=== PATIENT | male | born 1960 | race Caucasian/White ===

== ENCOUNTER 2016-05-22 23:18 | Inpatient (IN) | payer MEDICARE, MEDICAID ==
--- NOTE | 2016-05-23 00:51 | ED Physician Chart ---
Chief Complaint/HPI - Patient Information Date Seen:: 05/23/16 Time Seen:: 00:46 Chief Complaint:: sob History of Present Illness:: pt has been on dialysis x yrs. feels worse sob since 8pm today. no cp. thinks he needs dialysis tx...last was yesterday. no leg edema. no fever. no chills. no cough/no uri sx. Allergies:: Allergies Allergy/AdvReac Type Severity Reaction Status Date / Time tessie Allergy Verified 05/13/16 23:49 Historian:: Patient Review of Systems - Review of Systems General/Constitutional: No fever, No chills, No weight loss, No weakness, No diaphoresis, No edema, No loss of appetite Skin: No skin lesions, No rash, No bruising Head: No headache, No light-headedness Eyes: No loss of vision, No pain, No diplopia ENT: No earache, No nasal drainage, No sore throat, No tinnitus Neck: No neck pain, No swelling, No thyromegaly, No stiffness, No mass noted Cardio Vascular: No chest pain, No palpitations, No PND, No orthopnea, No edema Pulmonary: SOB, No cough, No sputum, No wheezing GI: No nausea, No vomiting, No diarrhea, No pain, No melena, No hematochezia, No constipation, No hematemesis G/U: No dysuria, No frequency, No hematuria, Other (pt does make some urine) Musculoskeletal: No bone or joint pain, No back pain, No muscle pain Endocrine: No polyuria, No polydipsia Psychiatric: No prior psych history, No depression, No anxiety, No suicidal ideation Hematopoietic: No bruising, No lymphadenopathy Allergic/Immuno: No urticaria, No angioedema Neurological: No syncope, No focal symptoms, No weakness, No paresthesia, No headache, No seizure, No dizziness, No confusion, No vertigo Past Medical History - Past Medical History Past Medical History: HTN, CHF, CVA/TIA, Dyslipidemia, ESRD (dialysis pt) Social History: No Alcohol Surgical History: other (dialysis shunt in left forearm) Medication: Reviewed Family Medical History - Family Member Mother History Unknown: Yes Ethnicity: Unknown Living Status: Unknown Hx Family Cancer: No (unknown) Hx Family Coronary Artery Disease: No (unkown) Hx Family Congestive Heart Failure: No (unkown) Hx Family Hypertension: Yes Hx Family Stroke: No Hx Family Diabetes: No Hx Family Seizures: No Hx Family Dementia: No Hx Family AIDS: No Hx Family HIV: No Hx Family COPD: No Hx Family Hepatitis: No Hx Family Psychiatric Problems: No Hx Family Tuberculosis: No Brother History Unknown: Yes Ethnicity: Living Status: Hx Family Cancer: No Hx Family Coronary Artery Disease: No Hx Family Congestive Heart Failure: No Hx Family Hypertension: No Hx Family Stroke: No Hx Family Diabetes: No Hx Family Seizures: No Hx Family Dementia: No Hx Family AIDS: No Hx Family HIV: No Hx Family COPD: No Hx Family Hepatitis: No Hx Family Psychiatric Problems: No Hx Family Tuberculosis: No Physical Exam - Physical Examination General/Constitutional: Awake, Well-developed, well-nourished, Alert, No distress, GCS 15, Non-toxic appearing, Ambulatory Other Gen/Cons comments:: seems slt anxious. no sev sob. no sig edema of legs. abd nontndr. Head: Atraumatic Eyes: Lids, conjuctiva normal, PERRL, EOMI Skin: Nl inspection, No rash, No skin lesions, No ecchymosis, Well hydrated, No lymphadenopathy ENMT: External ears, nose nl, Nasal exam nl, Lips, teeth, gums nl Neck: Nontender, Full ROM w/o pain, No JVD, No nuchal rigidity, No bruit, No mass, No stridor Respiratory: Nl effort/Exclusion, Clear to Auscultation, No Wheeze/Rhonchi/Rales Cardio Vascular: RRR, No murmur, gallop, rubs, NL S1 S2 GI: No tenderness/rebounding/guarding, No organomegaly, No hernia, Normal BS's, Nondistended, No mass/bruits, No McBurney tenderness : No CVA tenderness Extremities: No tenderness or effusion, Full ROM, normal strength in all extremities, No edema, Normal digits & nails Other Extremities comments:: dialysis shunt in left forearm...good thrill. no infection Neuro/Psych: Alert/oriented, DTR's symmetric, Normal sensory exam, Normal motor strength, Judgement/insight normal, Mood normal, Normal gait, No focal deficits Misc: normal gait, Normal back, No paraspinal tenderness Labs/Radiology/EKG Results - Lab Results Results: Laboratory Tests 05/23/16 05/23/16 05/23/16 00:55 00:55 00:55 WBC 5.9 D RBC 2.98 L Hgb 9.4 L Hct 27.5 L MCV 92.4 MCH 31.5 H MCHC Differential 34.1 RDW 14.1 Plt Count 126 L MPV 9.2 Neutrophils % 68.2 Lymphocytes % 16.7 L Monocytes % 10.1 H Eosinophils % 3.8 Basophils % 1.2 Sodium 134 L Potassium 5.5 H Chloride 96 L Carbon Dioxide 25.8 Anion Gap 17.7 H BUN 61 H Creatinine 8.0 H* Est GFR ( Amer) 9.1 Est GFR (Non-Af Amer) 7.5 BUN/Creatinine Ratio 7.6 Glucose 341 H Calcium 9.2 Total Bilirubin 0.6 AST 20 ALT 18 Alkaline Phosphatase 95 Troponin I 0.06 H D B-Natriuretic Peptide 4190.0 H Total Protein 7.6 Albumin 4.4 Globulin 3.2 Albumin/Globulin Ratio 1.4 - Radiology Results Results: cxr pos mod difuse pulmonary edema all over - EKG Interpretations EKG Time:: 01:00 Rhythm: nsr 70 Keller: -5 Rate: 70 Comments:: mild st elev v2-v4 ....records show no sig change from 05/13/16 ecg ED Septic Shock - . Is Septic Shock (SBP<90, OR Lactate>4 mmol\L) present?: No Reassessment (Disposition) - Reassessment Reassessment:: pt had 150 cc urine output per nurses. he had refused to allow the reilly cath for urine outpt monitoring Reassessment Condition:: Improved - Diagnosis Diagnosis:: 1 pulmonary edema 2ndary to chronic renal failure [address] elevation on ecg (appears old) - Patient Disposition Admitted to:: Telemetry Condition at Disposition:: Improved ED Discharge Plan - Patient Disposition Admit/Discharge/Transfer: Acute Care w/in this hosp Condition at Disposition: Stable
[2016-05-23 01:07] LABS: % BASOPHILS 1.2 % (0.0-2.0); % EOSINOPHILS 3.8 % (0.0-5.0); % LYMPHOCYTES 16.7 % (20.0-50.0); % MONOCYTES 10.1 % (2.0-10.0); % NEUTROPHILS 68.2 % (40.0-80.0); HEMATOCRIT 27.5 % (39.0-49.0); HEMOGLOBIN 9.4 gm/dL (13.2-17.3); MEAN CELL VOLUME 92.4 fl (80-99); MEAN CORPUSCULAR HEMOGLOBIN 31.5 pg (26.0-30.0); MEAN CORPUSCULAR HGB CONC 34.1 pg (28.0-36.0); MEAN PLATELET VOLUME 9.2 fl; PLATELET COUNT 126 Th/cmm (150-400); RED BLOOD COUNT 2.98 Mil/cmm (4.30-5.70); RED CELL DISTRIBUTION WIDTH 14.1 % (11.5-20.0)
[2016-05-23 01:11] LABS: WHITE BLOOD COUNT 5.9 Th/cmm (4.8-10.8)
[2016-05-23 01:23] LABS: ALB/GLOB RATIO 1.4 (1.0-1.8); ANION GAP 17.7 (7.0-16.0); BILIRUBIN,TOTAL 0.6 mg/dL (0.3-1.0); BUN/CREATININE RATIO 7.6; CALCIUM SERUM 9.2 mg/dL (8.6-10.3); CARBON DIOXIDE 25.8 mEq/L (21.0-31.0); POTASSIUM SERUM 5.5 mEq/L (3.5-5.1)
[2016-05-23] MEDS ORDERED: Morphine Sulfate 2 mg/mL 1mL Syr IVP PRN (03:53)
--- NOTE | 2016-05-23 09:44 | Diagnostic Imaging Report ---
CHEST X-RAY: AP view INDICATION: Shortness of breath COMPARISON: 05/13/2016 FINDINGS: Findings of CHF are noted. No effusions. Mild cardiomegaly is noted. Postsurgical changes of the lower neck are noted. Osseous structures are intact. IMPRESSION: CHF. Developing pneumonia of the right lower lung zones cannot be excluded.
[2016-05-23] MEDS ORDERED: Hydrocodone/APAP 10 mg/325 mg Tab PO PRN (11:30)
[2016-05-23] MEDS: Albuterol/Ipratropium Neb 3 ML AERS HHN PRN ×2 (13:43→19:25)
--- NOTE | 2016-05-23 14:34 | Internal Medicine Prog Note ---
Internal Medicine Subjective - Subjective Service Date: 05/23/16 ([facility] [id number]) Internal Medicine Objective - Results Result Diagrams: 05/23/16 00:55 05/23/16 00:55 Recent Labs: Laboratory Last Values WBC 5.9 Th/cmm (4.8-10.8) D 05/23/16 00:55 RBC 2.98 Mil/cmm (4.30-5.70) L 05/23/16 00:55 Hgb 9.4 gm/dL (13.2-17.3) L 05/23/16 00:55 Hct 27.5 % (39.0-49.0) L 05/23/16 00:55 MCV 92.4 fl (80-99) 05/23/16 00:55 MCH 31.5 pg (26.0-30.0) H 05/23/16 00:55 MCHC Differential 34.1 pg (28.0-36.0) 05/23/16 00:55 RDW 14.1 % (11.5-20.0) 05/23/16 00:55 Plt Count 126 Th/cmm (150-400) L 05/23/16 00:55 MPV 9.2 fl 05/23/16 00:55 Neutrophils % 68.2 % (40.0-80.0) 05/23/16 00:55 Lymphocytes % 16.7 % (20.0-50.0) L 05/23/16 00:55 Monocytes % 10.1 % (2.0-10.0) H 05/23/16 00:55 Eosinophils % 3.8 % (0.0-5.0) 05/23/16 00:55 Basophils % 1.2 % (0.0-2.0) 05/23/16 00:55 Sodium 134 mEq/L (136-145) L 05/23/16 00:55 Potassium 5.5 mEq/L (3.5-5.1) H 05/23/16 00:55 Chloride 96 mEq/L (98-107) L 05/23/16 00:55 Carbon Dioxide 25.8 mEq/L (21.0-31.0) 05/23/16 00:55 Anion Gap 17.7 (7.0-16.0) H 05/23/16 00:55 BUN 61 mg/dL (7-25) H 05/23/16 00:55 Creatinine 8.0 mg/dL (0.7-1.3) H* 05/23/16 00:55 Est GFR ( Amer) 9.1 ml/min 05/23/16 00:55 Est GFR (Non-Af Amer) 7.5 ml/min 05/23/16 00:55 BUN/Creatinine Ratio 7.6 05/23/16 00:55 Glucose 341 mg/dL (70-105) H 05/23/16 00:55 Calcium 9.2 mg/dL (8.6-10.3) 05/23/16 00:55 Total Bilirubin 0.6 mg/dL (0.3-1.0) 05/23/16 00:55 AST 20 U/L (13-39) 05/23/16 00:55 ALT 18 U/L (7-52) 05/23/16 00:55 Alkaline Phosphatase 95 U/L (34-104) 05/23/16 00:55 Troponin I 0.06 ng/mL (0.01-0.05) H 05/23/16 08:00 B-Natriuretic Peptide 4190.0 pg/mL (5.0-100.0) H 05/23/16 00:55 Total Protein 7.6 gm/dL (6.0-8.3) 05/23/16 00:55 Albumin 4.4 gm/dL (4.2-5.5) 05/23/16 00:55 Globulin 3.2 gm/dL 05/23/16 00:55 Albumin/Globulin Ratio 1.4 (1.0-1.8) 05/23/16 00:55 - Physical Exam Vitals and I&O: Vital Signs Temp 97.1 F 05/23/16 09:00 Pulse 83 05/23/16 13:43 Resp 20 05/23/16 13:43 BP 181/89 05/23/16 09:00 Pulse Ox 94 05/23/16 13:43 Intake & Output 05/22/16 05/23/16 05/23/16 18:59 06:59 18:59 Intake Total 0 Balance 0 Weight (lbs) 155 lb Intake: Oral 0 Active Medications: Current Medications Acetaminophen (Tylenol) 650 mg PO Q4HR PRN PRN Reason: Pain Stop: 07/22/16 09:53 Acetaminophen/Hydrocodone Bitart ([place] 10 Mg/325 Mg) 1 tab PO Q6HR PRN PRN Reason: Pain (Severe) Stop: 07/22/16 11:29 Albuterol/Ipratropium (Duoneb Neb) 3 ml HHN Q6HR PRN PRN Reason: Shortness of Breath Stop: 07/22/16 09:53 Last Admin: 05/23/16 13:43 Dose: 3 ml Aspirin (Aspirin Chewable) 81 mg PO DAILY [facility] Stop: 07/23/16 08:59 Atorvastatin Calcium (Lipitor) 20 mg PO HS CECE PRN Reason: Protocol Stop: 07/22/16 20:59 Calcium Acetate (Phoslo) 667 mg PO TID [facility] Stop: 07/22/16 13:59 Last Admin: 05/23/16 13:39 Dose: 667 mg Carvedilol (Coreg) 6.25 mg PO BID [facility] Stop: 07/22/16 16:59 Cholecalciferol (Vitamin D3) 5,000 iu PO DAILY [facility] Stop: 07/23/16 08:59 Clonidine HCl (Catapres) 0.1 mg PO Q6HR PRN PRN Reason: SBP >160 Stop: 07/22/16 12:29 Last Admin: 05/23/16 13:39 Dose: 0.1 mg Docusate Sodium (Colace) 100 mg PO BID [facility] Stop: 07/22/16 16:59 Epoetin Nate (Epogen) 5,000 units SUBQ MoWeFr CECE Stop: 07/22/16 14:59 Fenofibrate (Tricor) 134 mg PO HS [facility] Stop: 07/22/16 20:59 Ferrous Sulfate (Iron) 325 mg PO QPM 1700 CECE Stop: 07/22/16 16:59 Folic Acid (Folate) 1 mg PO DAILY [facility] Stop: 07/23/16 08:59 Gabapentin (Neurontin) 300 mg PO HS [facility] Stop: 07/22/16 20:59 Miscellaneous (Clinical Monitoring) 1 ea MC PRN PRN PRN Reason: RENAL DOSING Stop: 07/22/16 07:54 Morphine Sulfate (Morphine) 2 mg IVP Q4H PRN PRN Reason: Pain (Moderate) Stop: 07/22/16 03:59 Sennosides (Senna Plus 50 Mg-8.6 Mg) 8.6 tab PO HS [facility] Stop: 07/22/16 20:59 - Procedures Procedures: Procedures Procedure Code Date BLOOD TRANSFUSION SERVICE 44882 03/25/15 ESRD HOME PT SERV P DAY + 95382 07/19/15 HEMODIALYSIS 39.95 12/07/14 HEMODIALYSIS REPEATED EVAL 21294 03/25/15 INJECT/INFUSE NEC 99.29 10/13/14 PERFORMANCE OF URINARY FILTRATION, MULTIPLE [id number] 05/13/16 PERFORMANCE OF URINARY FILTRATION, SINGLE [id number] 07/19/15 TRANSFUSE NONAUT RED BLOOD CELLS IN PERIPH VEIN, PERC 50077T9 03/25/15 Internal Medicine Assmt/Plan - Assessment Assessment: shortness of breath elevated troponin r/o ACS chf exacerbation esrd on hd dm-2
[2016-05-23] MEDS ORDERED: Epoetin Alfa 20000 Units/mL Vial SUBQ SCH (15:00)
[2016-05-23] MEDS ORDERED: Promethazine DM 6.25/15mg-5mL 5 ML SYR PO PRN (15:12)
--- NOTE | 2016-05-23 15:57 | History & Physical ---
CHIEF COMPLAINT: Shortness of breath. HISTORY OF PRESENT ILLNESS: This is a 56-year-old male who is admitted to the telemetry unit. I am well known to this patient from previous admission on 05/13/2016 for the same reason. According to the patient, he has been having increase of shortness of breath since last night. The patient denied any chest pain, but he states that after he drinks his fluids, he starts getting shortness of breath and he started to develop wheezing. The patient states that he probably needs dialysis to get all the fluid out. For this reason, the patient is now admitted to the telemetry unit. PAST MEDICAL HISTORY: ESRD on dialysis, diabetes, noncompliant, CHF, hypertension. PAST SURGICAL HISTORY: AV shunt, cholecystectomy. MEDICATIONS: Hydralazine, Blum, Lipitor, insulin, melatonin, Colace, losartan, Epogen, iron, minoxidil, calcium and vitamin D3. ALLERGIES: No drug allergies. SOCIAL HISTORY: The patient has a history of smoking and drinking in the past. Denies any illicit drug usage. The patient states that he is with 4 kids. FAMILY HISTORY: Noncontributory. REVIEW OF SYSTEMS: GENERAL: Denies any fevers, any chills. HEENT: No blurred vision. LUNGS: The patient has shortness of breath associated with wheezing. CARDIOVASCULAR: Denies any chest pain. GASTROINTESTINAL: Denies any nausea, vomiting. GENITOURINARY: Denies any dysuria. All other systems are reviewed by me and are negative. PHYSICAL EXAMINATION: EXTREMITIES: The patient is a well-developed, well nourished, no acute distress. VITAL SIGNS: Temperature 97.1, heart rate 68, blood pressure ____, respirations 18, O2 99%. HEENT: Head; normocephalic, atraumatic. NECK: Supple. No mass. LUNGS: Wheezing bilaterally upon auscultation. HEART: Regular rate and rhythm. No murmurs or gallops. ABDOMEN: Soft, nontender, nondistended. Positive bowel sounds in all 4 quadrants. LABORATORY DATA: WBC 5.9, H and H 9.4 and 27.5, platelet 126. Sodium 134, potassium 5.5, chloride 96, BUN 61, creatinine 8.0. Troponin of 0.06. BNP 4190. ASSESSMENT: Shortness of breath, elevated troponin, rule out acute coronary syndrome, congestive heart failure exacerbation, end-stage renal disease, on dialysis, diabetes, noncompliant and hypertension. PLAN: The patient will be admitted to the telemetry unit. The patient will have a consultation with Dr. Haas and Dr. Mian Yarbrough. The patient to receive dialysis during the hospital stay. We will monitor patient's intake and output. The patient was given Lasix x 1 in the ER. We will continue to monitor the patient. JOB# [id number]
[2016-05-23] MEDS: NIFEdipine 30 mg ER Tab PO SCH (17:50)
[2016-05-23] MEDS: Ferrous Sulfate 325 MG TAB PO SCH (17:51)
[2016-05-23] MEDS: INSULIN ASPART SLIDING SCALE 100 UNITS/ML UNIT SUBQ SCH ×2 (18:02→22:02)
[2016-05-23] MEDS ORDERED: Fenofibrate, Micronized 134 mg Cap PO SCH (21:00)
[2016-05-23] MEDS ORDERED: Non-Formulary Item 1 EA (Atorvastatin Calcium [Lipitor] 20 MG) PO SCH (21:00)
[2016-05-23] MEDS ORDERED: Atorvastatin Calcium 10 MG TAB PO SCH (21:00)
[2016-05-23] MEDS ORDERED: Docusate Sodium/Senna Tab PO SCH ×2 (21:00→21:20)
--- NOTE | 2016-05-24 00:15 | Admit Criteria Form ---
Admit Criteria Forms - Admit Criteria Diagnosis: HEART FAILURE: COMMON COMPLICATIONS Clinical Indications for Inpatient Care (Place 'X' for any and all applicable criteria): Ongoing inpatient care may be indicated for heart failure with ANY ONE of the following (1)(2)(3)(4)(5): [ ]I. Ongoing need for care for primary condition requiring frequent therapy adjustments because of changes in cardiac function (eg, drug dosage changes for drugs that are renally metabolized) [ ]II. New-onset heart failure [ ]III. Heart failure with decreased urine output not responsive to attempts to optimize volume status [ ]IV. Acute cardiac ischemia causing or associated with failure [ X]V. Complications of heart failure, including ANY ONE of the following: [ ]a) Pericardial effusion [ ]b) Symptomatic pleural effusion [ ]c) O2 saturation <90% or PO2 < 60 mm Hg (8.0 kPa) on room air or require baseline supplemental O2 [ ]d) Tachypnea [X ]e) Dyspnea [ ]f) Syncope [ ]g) Change in mental status [ ]h) Acute renal insufficiency that is severe (reduction of more than 50% in estimated glomerular filtration rate from baseline) or progressive reduction of more than 25% in estimated glomerular filtration rate from baseline, with creatinine continuing to rise) [ ]i) Hemodynamic instability [ ]j) Anasarca [ ]k) Clinically significant metabolic abnormalities due to heart failure (eg, new-onset metabolic acidosis) Extended stay beyond goal length of stay for primary condition may be needed until ALL of the following are present(1)(3): [ ]a) Stable and effective diuretic regimen established (or patient on stable dialysis regimen if in chronic renal failure) [ ]b) Breathing comfortably at rest [ ]c) Saturation of arterial oxygen greater than 90% or at acceptable baseline [ ]d) Pulmonary edema absent or improved [ ]e) Hemodynamic stability [ ]f) Volume status acceptable on oral medication [ ]g) Peripheral or sacral edema absent or improved [ ]h) Renal function stable and manageable at a lower level of care [ ]i) Complications (eg, pleural effusion) resolved or manageable at a lower level of care [ ]j) Patient or caregiver has received written discharge instructions or educational material addressing activity level, diet, discharge medications, follow-up appointment, weight monitoring, and what to do if symptoms worsen The original [employer] content created by [employer] has been revised. The portions of the content which have been revised are identified through the use of italic text or in bold, and [employer] has neither reviewed nor approved the modified material.All other unmodified content is copyright [employer]. Please see references footnoted in the original [employer] edition 2016 Admit Criteria Met?: Yes
--- NOTE | 2016-05-24 03:38 | Consultation ---
The patient of Dr. Gregory. HISTORY AND PHYSICAL: This is a 56-year-old male patient with dialysis, recently discharged. The patient is a poor compliant. The patient came in with shortness of breath. The patient was found to have elevated BNP level , and Cardiology consult was requested. PAST MEDICAL HISTORY: Diabetes mellitus type 2, diabetic CKD stage V, end-stage renal disease on dialysis, hypertension, anemia, appendectomy, left upper extremity AV fistula, cholecystitis, congestive heart failure, and iron deficiency anemia. FAMILY HISTORY: Unremarkable. SOCIAL HISTORY: No history of smoking or alcohol abuse. ALLERGIES: No known allergies. PHYSICAL EXAMINATION: VITAL SIGNS: Blood pressure 156/90, pulse 88, and respirations 28. HEAD: Normocephalic. No lumps or bumps. EYES: Pupils are equal and reactive to light. Fundi show AV nicking, sclerae white, and conjunctivae pink. NECK: Carotid 2+. Normal upstroke. JVD 10 cm above the sternal angle. Thyroid not palpable. Lymph nodes not palpable. CHEST: Shows increased AP diameter. No kyphosis or scoliosis. LUNGS: Bilateral rales. Decreased breath sounds at both the bases. HEART: PMI in sixth intercostal space with lateral to midclavicular line. S1, S2, S3, S4, systolic murmur, grade 2/6, lower left sternal border without radiation. ABDOMEN: Soft. Liver and spleen not palpable. No organomegaly. Bowel sounds active. NEUROLOGIC: Unremarkable. EXTREMITIES: Peripheral pulses 2+. No pedal edema. The patient has AV fistula in the left upper extremity. CLINICAL IMPRESSION: Congestive heart failure; diastolic dysfunction, acute on chronic; diabetes mellitus type 2; diabetic chronic kidney disease stage V; end-stage renal disease, on dialysis; hyperkalemia; hypertension; iron deficiency anemia; fistula in left upper extremity. The patient is a noncompliant. The patient to have dialysis with ultrafiltration and monitor the patient on telemetry bed. JOB# [id number]
--- NOTE | 2016-05-24 04:53 | Consultation ---
INPATIENT NEPHROLOGY CONSULTATION REASON FOR CONSULTATION: End-stage renal disease, on hemodialysis. HISTORY OF PRESENT ILLNESS: The patient is a pleasant 56-year-old gentleman with end-stage renal disease secondary to diabetic nephropathy and hypertensive nephrosclerosis, on hemodialysis on Saturday, Saturday, and Saturday schedule via left upper extremity AV fistula at [facility]. The patient is well known to me from previous admission as well as Dialysis Unit. The patient states that he felt short of breath. Of note, he has approximately 6 kg over his estimated dry weight. Otherwise, denies complaints, mildly elevated troponin was also noted. REVIEW OF SYSTEMS: Denies fevers, chills, nausea, or vomiting. Does endorse shortness of breath. Denies chest pain. Otherwise, 14-point review of systems as noted above. PAST MEDICAL HISTORY: As per above. PAST SURGICAL HISTORY: Left arm AV fistula creation. SOCIAL HISTORY: No smoking, alcohol or drinking at this time. FAMILY HISTORY: Noncontributory. PHYSICAL EXAMINATION: VITAL SIGNS: Temperature 36, blood pressure 177/60, pulse 80, respirations 18. GENERAL APPEARANCE: Well-developed, well-nourished man in no apparent distress, alert and oriented x3. LUNGS: Clear to auscultation bilaterally; however, scattered crackles and rales in the bases bilaterally. CARDIOVASCULAR: Regular rate, normal rhythm. No murmurs, rubs or gallops. EXTREMITIES: Trace edema, 1+ pulses distally. LABORATORY DATA: As of 05/23/2016, white count 5.9, hemoglobin 9.4, platelets 126. Chemistry, sodium 134, K 5.5, chloride 96, CO2 25, BUN 61, creatinine 8.0 and glucose 341. Troponin 0.06, slightly elevated, albumin 4.4, calcium 9.2. ASSESSMENT AND RECOMMENDATIONS: 1. End-stage renal disease, on hemodialysis via left upper extremity arteriovenous fistula. We will perform dialysis today for ultrafiltration as well as clearance. Continue on Saturday, Saturday, Saturday schedule at this time. 2. Shortness of breath, dyspnea likely due to fluid overload as per number 1. We do suspect a component of congestive heart failure, the patient is being evaluated by Cardiology, Dr. Yarbrough, who believes that this is likely noncompliance with dialysis and had a negative cardiac workup on recent admission, please see Cardiology evaluation. 3. Anemia secondary to end-stage renal disease. Hemoglobin remains below goal at this time. We will hold off on giving MARTA. The patient is only going to be staying in hospital for the next couple of days, as the patient received his weekly dose of Aranesp at the Dialysis Unit on 05/21/2016. 4. Renal osteodystrophy. Calcium appears to be within goal. We will check phosphorus with a.m. labs. Thank you, Dr Gregory for allowing us to participate in the care of this end-stage renal disease patient. We will continue to follow along with you. JOB# [id number] KENTRELL
[2016-05-24 06:30] LABS: HEMATOCRIT 28.2 % (39.0-49.0); HEMOGLOBIN 9.7 gm/dL (13.2-17.3); MEAN CELL VOLUME 92.6 fl (80-99); MEAN CORPUSCULAR HEMOGLOBIN 31.9 pg (26.0-30.0); MEAN CORPUSCULAR HGB CONC 34.5 pg (28.0-36.0); MEAN PLATELET VOLUME 8.9 fl; PLATELET COUNT 137 Th/cmm (150-400); RED BLOOD COUNT 3.04 Mil/cmm (4.30-5.70); RED CELL DISTRIBUTION WIDTH 13.6 % (11.5-20.0)
[2016-05-24] MEDS ORDERED: Levothyroxine 0.1 Mg Tab PO SCH (06:30)
[2016-05-24] MEDS: INSULIN ASPART SLIDING SCALE 100 UNITS/ML UNIT SUBQ SCH ×3 (06:30→16:57)
[2016-05-24 06:31] LABS: WHITE BLOOD COUNT 3.9 Th/cmm (4.8-10.8)
[2016-05-24 06:58] LABS: BUN/CREATININE RATIO 6.7; CALCIUM SERUM 9.4 mg/dL (8.6-10.3); CARBON DIOXIDE 33.1 mEq/L (21.0-31.0); POTASSIUM SERUM 4.1 mEq/L (3.5-5.1)
[2016-05-24 07:13] LABS: BASOPHIL 3 % (0-3); EOSINOPHIL 3 % (0-5); NEUTROPHILS 61 % (40-80); PLATELET ESTIMATE DECREASED PLATELETS (NORMAL); PLATELET MORPHOLOGY NORMAL (NORMAL); TOTAL CELLS COUNTED 100
[2016-05-24 07:24] LABS: CREATININE - SERUM 6.4 mg/dL (0.7-1.3)
[2016-05-24] MEDS ORDERED: Aspirin 81mg Chewable Tab PO SCH (09:00)
[2016-05-24] MEDS ORDERED: PROTEIN HYDROLYS PO SCH (09:00)
[2016-05-24] MEDS ORDERED: AMINO ACIDS PO SCH (09:00)
[2016-05-24] MEDS ORDERED: INSULIN HUMAN ISOPHANE (NPH) 100 UNITS/ML SUBQ SCH (09:00)
[2016-05-24] MEDS ORDERED: Vitamin B Complex w/Vitamin C Tab PO SCH (09:00)
--- NOTE | 2016-05-24 09:02 | General Progress Note ---
Subjective - Review of Systems Service Date: 05/24/16 Subjective: Denies c/o, wants to go home today. 4L removed w/ HD on 05/23. Objective - Results Result Diagrams: 05/24/16 05:55 05/24/16 05:55 Recent Labs: Laboratory Last Values WBC 3.9 Th/cmm (4.8-10.8) L D 05/24/16 05:55 RBC 3.04 Mil/cmm (4.30-5.70) L 05/24/16 05:55 Hgb 9.7 gm/dL (13.2-17.3) L 05/24/16 05:55 Hct 28.2 % (39.0-49.0) L 05/24/16 05:55 MCV 92.6 fl (80-99) 05/24/16 05:55 MCH 31.9 pg (26.0-30.0) H 05/24/16 05:55 MCHC Differential 34.5 pg (28.0-36.0) 05/24/16 05:55 RDW 13.6 % (11.5-20.0) 05/24/16 05:55 Plt Count 137 Th/cmm (150-400) L 05/24/16 05:55 MPV 8.9 fl 05/24/16 05:55 Neutrophils % 68.2 % (40.0-80.0) 05/23/16 00:55 Lymphocytes % 16.7 % (20.0-50.0) L 05/23/16 00:55 Monocytes % 10.1 % (2.0-10.0) H 05/23/16 00:55 Eosinophils % 3.8 % (0.0-5.0) 05/23/16 00:55 Basophils % 1.2 % (0.0-2.0) 05/23/16 00:55 Neutrophils (Manual) 61 % (40-80) 05/24/16 05:55 Lymphocytes 25 % (20-50) 05/24/16 05:55 Monocytes 8 % (2-10) 05/24/16 05:55 Eosinophils 3 % (0-5) 05/24/16 05:55 Basophils 3 % (0-3) 05/24/16 05:55 Platelet Estimate DECREASED PLATELETS (NORMAL) 05/24/16 05:55 Platelet Morphology NORMAL (NORMAL) 05/24/16 05:55 RBC Morph Micro Appear NORMAL (NORMAL) 05/24/16 05:55 Sodium 136 mEq/L (136-145) 05/24/16 05:55 Potassium 4.1 mEq/L (3.5-5.1) 05/24/16 05:55 Chloride 96 mEq/L (98-107) L 05/24/16 05:55 Carbon Dioxide 33.1 mEq/L (21.0-31.0) H 05/24/16 05:55 Anion Gap 11.0 (7.0-16.0) 05/24/16 05:55 BUN 43 mg/dL (7-25) H 05/24/16 05:55 Creatinine 6.4 mg/dL (0.7-1.3) H* 05/24/16 05:55 Est GFR ( Amer) 11.8 ml/min 05/24/16 05:55 Est GFR (Non-Af Amer) 9.7 ml/min 05/24/16 05:55 BUN/Creatinine Ratio 6.7 05/24/16 05:55 Glucose 211 mg/dL (70-105) H 05/24/16 05:55 POC Glucose 193 MG/DL (70 - 105) H 05/24/16 06:09 Calcium 9.4 mg/dL (8.6-10.3) 05/24/16 05:55 Phosphorus 4.3 mg/dL (2.5-5.0) 05/24/16 05:55 Total Bilirubin 0.6 mg/dL (0.3-1.0) 05/23/16 00:55 AST 20 U/L (13-39) 05/23/16 00:55 ALT 18 U/L (7-52) 05/23/16 00:55 Alkaline Phosphatase 95 U/L (34-104) 05/23/16 00:55 Troponin I 0.05 ng/mL (0.01-0.05) 05/23/16 16:00 B-Natriuretic Peptide 4190.0 pg/mL (5.0-100.0) H 05/23/16 00:55 Total Protein 7.6 gm/dL (6.0-8.3) 05/23/16 00:55 Albumin 4.4 gm/dL (4.2-5.5) 05/23/16 00:55 Globulin 3.2 gm/dL 05/23/16 00:55 Albumin/Globulin Ratio 1.4 (1.0-1.8) 05/23/16 00:55 - Physical Exam Vitals and I&O: Vital Signs Temp 98.3 F 05/24/16 08:29 Pulse 57 05/24/16 08:29 Resp 17 05/24/16 08:29 BP 143/72 05/24/16 08:29 Pulse Ox 96 05/24/16 08:29 Intake & Output 05/23/16 05/24/16 05/24/16 18:59 06:59 18:59 Intake Total 300 Output Total 4000 Balance -4000 300 Intake: Oral 300 Output: Hemodialysis 4000 Other: Stool Characteristics Soft Active Medications: Current Medications Acetaminophen (Tylenol) 650 mg PO Q4HR PRN PRN Reason: Pain Stop: 07/22/16 09:53 Acetaminophen/Hydrocodone Bitart ([place] 10 Mg/325 Mg) 1 tab PO Q6HR PRN PRN Reason: Pain (Severe) Stop: 07/22/16 11:29 Albuterol/Ipratropium (Duoneb Neb) 3 ml HHN Q6HR PRN PRN Reason: Shortness of Breath Stop: 07/22/16 09:53 Last Admin: 05/23/16 19:25 Dose: 3 ml Aspirin (Aspirin Chewable) 81 mg PO DAILY [facility] Stop: 07/23/16 08:59 Atorvastatin Calcium (Lipitor) 20 mg PO HS [facility] PRN Reason: Protocol Stop: 07/22/16 20:59 Last Admin: 05/23/16 21:36 Dose: 20 mg Calcium Acetate (Phoslo) 667 mg PO TID [facility] Stop: 07/22/16 13:59 Last Admin: 05/23/16 21:36 Dose: 667 mg Carvedilol (Coreg) 6.25 mg PO BID [facility] Stop: 07/22/16 16:59 Last Admin: 05/23/16 17:49 Dose: 6.25 mg Cholecalciferol (Vitamin D3) 5,000 iu PO DAILY [facility] Stop: 07/23/16 08:59 Clonidine HCl (Catapres) 0.1 mg PO Q6HR PRN PRN Reason: SBP >160 Stop: 07/22/16 12:29 Last Admin: 05/24/16 00:39 Dose: 0.1 mg Docusate Sodium (Colace) 100 mg PO BID [facility] Stop: 07/22/16 16:59 Last Admin: 05/23/16 17:50 Dose: Not Given Epoetin Nate (Epogen) 5,000 units SUBQ MoWeFr [facility] Stop: 07/22/16 14:59 Last Admin: 05/23/16 21:39 Dose: 5,000 units Fenofibrate (Tricor) 134 mg PO HS [facility] Stop: 07/22/16 20:59 Last Admin: 05/23/16 21:37 Dose: 134 mg Ferrous Sulfate (Iron) 325 mg PO QPM 1700 [facility] Stop: 07/22/16 16:59 Last Admin: 05/23/16 17:51 Dose: 325 mg Folic Acid (Folate) 1 mg PO DAILY [facility] Stop: 07/23/16 08:59 Gabapentin (Neurontin) 300 mg PO HS [facility] Stop: 07/22/16 20:59 Last Admin: 05/23/16 21:37 Dose: 300 mg Hydralazine HCl (Apresoline) 100 mg PO Q8HR [facility] Stop: 07/22/16 20:59 Last Admin: 05/24/16 05:05 Dose: 100 mg Insulin Aspart (Novolog Insulin Sliding Scale) 0 units SUBQ ACHS [facility] PRN Reason: Protocol Stop: 07/22/16 16:29 Last Admin: 05/24/16 06:30 Dose: 2 units Insulin Human NPH (Novolin N) 8 units SUBQ QAM [facility] PRN Reason: Protocol Stop: 07/23/16 08:59 Levothyroxine Sodium (Synthroid) 0.1 mg PO QDAC [facility] Stop: 07/23/16 06:29 Last Admin: 05/24/16 06:06 Dose: 0.1 mg Minoxidil (Loniten) 2.5 mg PO BID [facility] Stop: 07/22/16 16:59 Last Admin: 05/23/16 17:50 Dose: 2.5 mg Miscellaneous (Clinical Monitoring) 1 ea MC PRN PRN PRN Reason: RENAL DOSING Stop: 07/22/16 07:54 Morphine Sulfate (Morphine) 2 mg IVP Q4H PRN PRN Reason: Pain (Moderate) Stop: 07/22/16 03:59 Nifedipine (Procardia Xl) 30 mg PO BID [facility] Stop: 07/22/16 16:59 Last Admin: 05/23/16 17:50 Dose: 30 mg Promethazine HCl/Dextromethorphan (Phenergan Dm 6.25/15mg-5 Ml) 5 ml PO Q6HR PRN PRN Reason: Cough Stop: 07/22/16 15:11 Sennosides (Senna Plus 50 Mg-8.6 Mg) 1 tab PO HS [facility] Stop: 07/22/16 20:59 Valsartan (Diovan) 160 mg PO BID [facility] Stop: 07/22/16 16:59 Last Admin: 05/23/16 17:51 Dose: 160 mg Vitamin B Complex/Vit C/Folic Acid (Vitamin B Complex W/Vitamin C) 1 tab PO DAILY [facility] Stop: 07/23/16 08:59 General: Alert, Oriented x3 HEENT: Atraumatic Neck: Supple Cardiovascular: Regular rate Lungs: Clear to auscultation Extremities: Edema (trace) - Procedures Procedures: Procedures Procedure Code Date BLOOD TRANSFUSION SERVICE 92454 03/25/15 ESRD HOME PT SERV P DAY + 12230 07/19/15 HEMODIALYSIS 39.95 12/07/14 HEMODIALYSIS REPEATED EVAL 97131 03/25/15 INJECT/INFUSE NEC 99.29 10/13/14 PERFORMANCE OF URINARY FILTRATION, MULTIPLE [id number] 05/13/16 PERFORMANCE OF URINARY FILTRATION, SINGLE [id number] 07/19/15 TRANSFUSE NONAUT RED BLOOD CELLS IN PERIPH VEIN, [facility] [id number] 03/25/15 Assessment/Plan - Problem List Patient Problems: All Active Problems Acute renal failure (Acute) Body fluid retention (Acute) E87.70 Congestive heart failure (Acute) I50.9 End-stage renal disease (Acute) Hypertensive renal disease, malignant, with renal failure (Acute) I12.9 - Assessment Assessment: ESRD on HD, on MWF schedule Anemia Renal osteodystrophy Fluid overload - Plan Plan: Appears euvolemic today Can be d/c from renal perspective to follow at [place] HD on MWF schedule BP controlled D/c night-time 8 units insulin due to early AM hypoglycemia
[2016-05-24] MEDS: NIFEdipine 30 mg ER Tab PO SCH ×2 (09:05→17:24)
--- NOTE | 2016-05-24 13:02 | Internal Medicine Prog Note ---
Internal Medicine Subjective - Subjective Service Date: 05/24/16 (dc summary [id number]) Internal Medicine Objective - Results Result Diagrams: 05/24/16 05:55 05/24/16 05:55 Recent Labs: Laboratory Last Values WBC 3.9 Th/cmm (4.8-10.8) L D 05/24/16 05:55 RBC 3.04 Mil/cmm (4.30-5.70) L 05/24/16 05:55 Hgb 9.7 gm/dL (13.2-17.3) L 05/24/16 05:55 Hct 28.2 % (39.0-49.0) L 05/24/16 05:55 MCV 92.6 fl (80-99) 05/24/16 05:55 MCH 31.9 pg (26.0-30.0) H 05/24/16 05:55 MCHC Differential 34.5 pg (28.0-36.0) 05/24/16 05:55 RDW 13.6 % (11.5-20.0) 05/24/16 05:55 Plt Count 137 Th/cmm (150-400) L 05/24/16 05:55 MPV 8.9 fl 05/24/16 05:55 Neutrophils % 68.2 % (40.0-80.0) 05/23/16 00:55 Lymphocytes % 16.7 % (20.0-50.0) L 05/23/16 00:55 Monocytes % 10.1 % (2.0-10.0) H 05/23/16 00:55 Eosinophils % 3.8 % (0.0-5.0) 05/23/16 00:55 Basophils % 1.2 % (0.0-2.0) 05/23/16 00:55 Neutrophils (Manual) 61 % (40-80) 05/24/16 05:55 Lymphocytes 25 % (20-50) 05/24/16 05:55 Monocytes 8 % (2-10) 05/24/16 05:55 Eosinophils 3 % (0-5) 05/24/16 05:55 Basophils 3 % (0-3) 05/24/16 05:55 Platelet Estimate DECREASED PLATELETS (NORMAL) 05/24/16 05:55 Platelet Morphology NORMAL (NORMAL) 05/24/16 05:55 RBC Morph Micro Appear NORMAL (NORMAL) 05/24/16 05:55 Sodium 136 mEq/L (136-145) 05/24/16 05:55 Potassium 4.1 mEq/L (3.5-5.1) 05/24/16 05:55 Chloride 96 mEq/L (98-107) L 05/24/16 05:55 Carbon Dioxide 33.1 mEq/L (21.0-31.0) H 05/24/16 05:55 Anion Gap 11.0 (7.0-16.0) 05/24/16 05:55 BUN 43 mg/dL (7-25) H 05/24/16 05:55 Creatinine 6.4 mg/dL (0.7-1.3) H* 05/24/16 05:55 Est GFR ( Amer) 11.8 ml/min 05/24/16 05:55 Est GFR (Non-Af Amer) 9.7 ml/min 05/24/16 05:55 BUN/Creatinine Ratio 6.7 05/24/16 05:55 Glucose 211 mg/dL (70-105) H 05/24/16 05:55 POC Glucose 193 MG/DL (70 - 105) H 05/24/16 06:09 Hemoglobin A1c % 9.2 % (4.0-6.0) H 05/24/16 05:55 Calcium 9.4 mg/dL (8.6-10.3) 05/24/16 05:55 Phosphorus 4.3 mg/dL (2.5-5.0) 05/24/16 05:55 Total Bilirubin 0.6 mg/dL (0.3-1.0) 05/23/16 00:55 AST 20 U/L (13-39) 05/23/16 00:55 ALT 18 U/L (7-52) 05/23/16 00:55 Alkaline Phosphatase 95 U/L (34-104) 05/23/16 00:55 Troponin I 0.05 ng/mL (0.01-0.05) 05/23/16 16:00 B-Natriuretic Peptide 4190.0 pg/mL (5.0-100.0) H 05/23/16 00:55 Total Protein 7.6 gm/dL (6.0-8.3) 05/23/16 00:55 Albumin 4.4 gm/dL (4.2-5.5) 05/23/16 00:55 Globulin 3.2 gm/dL 05/23/16 00:55 Albumin/Globulin Ratio 1.4 (1.0-1.8) 05/23/16 00:55 Hep Bs Antigen Negative (Negative) 05/23/16 16:35 - Physical Exam Vitals and I&O: Vital Signs Temp 98.4 F 05/24/16 12:16 Pulse 59 05/24/16 12:16 Resp 18 05/24/16 12:16 BP 134/80 05/24/16 12:16 Pulse Ox 97 05/24/16 12:16 Intake & Output 05/23/16 05/24/16 05/24/16 18:59 06:59 18:59 Intake Total 300 Output Total 4000 Balance -4000 300 Intake: Oral 300 Output: Hemodialysis 4000 Other: Stool Characteristics Soft Active Medications: Current Medications Acetaminophen (Tylenol) 650 mg PO Q4HR PRN PRN Reason: Pain Stop: 07/22/16 09:53 Acetaminophen/Hydrocodone Bitart ([place] 10 Mg/325 Mg) 1 tab PO Q6HR PRN PRN Reason: Pain (Severe) Stop: 07/22/16 11:29 Albuterol/Ipratropium (Duoneb Neb) 3 ml HHN Q6HR PRN PRN Reason: Shortness of Breath Stop: 07/22/16 09:53 Last Admin: 05/23/16 19:25 Dose: 3 ml Aspirin (Aspirin Chewable) 81 mg PO DAILY [facility] Stop: 07/23/16 08:59 Last Admin: 05/24/16 09:04 Dose: 81 mg Atorvastatin Calcium (Lipitor) 20 mg PO HS [facility] PRN Reason: Protocol Stop: 07/22/16 20:59 Last Admin: 05/23/16 21:36 Dose: 20 mg Calcium Acetate (Phoslo) 667 mg PO TID [facility] Stop: 07/22/16 13:59 Last Admin: 05/24/16 08:59 Dose: 667 mg Carvedilol (Coreg) 6.25 mg PO BID [facility] Stop: 07/22/16 16:59 Last Admin: 05/24/16 08:58 Dose: Not Given Cholecalciferol (Vitamin D3) 5,000 iu PO DAILY [facility] Stop: 07/23/16 08:59 Last Admin: 05/24/16 09:09 Dose: 5,000 iu Clonidine HCl (Catapres) 0.1 mg PO Q6HR PRN PRN Reason: SBP >160 Stop: 07/22/16 12:29 Last Admin: 05/24/16 00:39 Dose: 0.1 mg Docusate Sodium (Colace) 100 mg PO BID [facility] Stop: 07/22/16 16:59 Last Admin: 05/24/16 09:04 Dose: Not Given Epoetin Nate (Epogen) 5,000 units SUBQ MoWeFr [facility] Stop: 07/22/16 14:59 Last Admin: 05/23/16 21:39 Dose: 5,000 units Fenofibrate (Tricor) 134 mg PO HS [facility] Stop: 07/22/16 20:59 Last Admin: 05/23/16 21:37 Dose: 134 mg Ferrous Sulfate (Iron) 325 mg PO QPM 1700 [facility] Stop: 07/22/16 16:59 Last Admin: 05/23/16 17:51 Dose: 325 mg Folic Acid (Folate) 1 mg PO DAILY [facility] Stop: 07/23/16 08:59 Last Admin: 05/24/16 09:04 Dose: 1 mg Gabapentin (Neurontin) 300 mg PO HS [facility] Stop: 07/22/16 20:59 Last Admin: 05/23/16 21:37 Dose: 300 mg Hydralazine HCl (Apresoline) 100 mg PO Q8HR [facility] Stop: 07/22/16 20:59 Last Admin: 05/24/16 05:05 Dose: 100 mg Insulin Aspart (Novolog Insulin Sliding Scale) 0 units SUBQ ACHS [facility] PRN Reason: Protocol Stop: 07/22/16 16:29 Last Admin: 05/24/16 06:30 Dose: 2 units Insulin Human NPH (Novolin N) 8 units SUBQ QAM [facility] PRN Reason: Protocol Stop: 07/23/16 08:59 Last Admin: 05/24/16 09:10 Dose: 8 units Levothyroxine Sodium (Synthroid) 0.1 mg PO QDAC [facility] Stop: 07/23/16 06:29 Last Admin: 05/24/16 06:06 Dose: 0.1 mg Minoxidil (Loniten) 2.5 mg PO BID [facility] Stop: 07/22/16 16:59 Last Admin: 05/24/16 10:42 Dose: 2.5 mg Miscellaneous (Clinical Monitoring) 1 ea MC PRN PRN PRN Reason: RENAL DOSING Stop: 07/22/16 07:54 Nifedipine (Procardia Xl) 30 mg PO BID [facility] Stop: 07/22/16 16:59 Last Admin: 05/24/16 09:05 Dose: 30 mg Promethazine HCl/Dextromethorphan (Phenergan Dm 6.25/15mg-5 Ml) 5 ml PO Q6HR PRN PRN Reason: Cough Stop: 07/22/16 15:11 Sennosides (Senna Plus 50 Mg-8.6 Mg) 1 tab PO HS [facility] Stop: 07/22/16 20:59 Valsartan (Diovan) 160 mg PO BID [facility] Stop: 07/22/16 16:59 Last Admin: 05/24/16 09:06 Dose: 160 mg Vitamin B Complex/Vit C/Folic Acid (Vitamin B Complex W/Vitamin C) 1 tab PO DAILY [facility] Stop: 07/23/16 08:59 Last Admin: 05/24/16 09:10 Dose: 1 tab - Procedures Procedures: Procedures Procedure Code Date BLOOD TRANSFUSION SERVICE 69643 03/25/15 ESRD HOME PT SERV P DAY + 68971 07/19/15 HEMODIALYSIS 39.95 12/07/14 HEMODIALYSIS REPEATED EVAL 58203 03/25/15 INJECT/INFUSE NEC 99.29 10/13/14 PERFORMANCE OF URINARY FILTRATION, MULTIPLE [id number] 05/13/16 PERFORMANCE OF URINARY FILTRATION, SINGLE [id number] 07/19/15 TRANSFUSE NONAUT RED BLOOD CELLS IN PERIPH VEIN, [facility] [id number] 03/25/15 Internal Medicine Assmt/Plan - Assessment Assessment: shortness of breath elevated troponin r/o ACS chf exacerbation esrd on hd dm-2
[2016-05-24] MEDS: Ferrous Sulfate 325 MG TAB PO SCH (17:24)
--- NOTE | 2016-05-24 18:55 | Discharge Summary ---
FINAL DIAGNOSES: 1.Shortness of breath, resolved. 2.Elevated troponin, rule out acute coronary syndrome, resolved. 3.Congestive heart failure exacerbation. 4.End-stage renal disease, on dialysis. 5.Diabetes, noncompliant. 6.Hypertension. HISTORY OF PRESENT ILLNESS: This is a 56-year-old male who was admitted to the telemetry unit. According to the patient, he has been having increase of shortness of breath as outlined. The patient denied any chest pain. He states that he drinks. After eating ____ he starts getting shortness of breath and start to developed wheezing. For these reason, the patient was admitted to the telemetry unit. PHYSICAL EXAMINATION: GENERAL: The patient is well developed, well nourished, in no acute distress. VITAL SIGNS: Stable. HEENT: Normocephalic, atraumatic. NECK: Supple. No mass. LUNGS: Clear bilaterally upon auscultation. HEART: Regular rate and rhythm. No murmurs or gallops. SKIN: Intact, warm to touch. ABDOMEN: Soft, nontender, nondistended. Positive bowel sounds in all 4 quadrants. HOSPITAL COURSE: During the hospital stay, the patient was admitted to the telemetry unit. The patient had a consultation with Dr. Mian Yarbrough and Dr. Stephan Buckley. Dr. Mian Yarbrough's plan of care for this patient was to continue with dialysis and to monitor the patient on grain elevator agent. The patient was later then stabilized. He did not have any wheezing. The patient felt better after dialysis. The patient was stable for discharge. CONDITION UPON DISCHARGE: Fair. DISPOSITION: The patient is going home. Educated the patient importance of being compliant with his medications and also his diet. The patient understood and verbalized. JOB# [id number]
== END 2016-05-24 18:00 | DRG 291 ==
LOC: ER 23:18 → TELE 05-23 03:50
PROVIDERS: ADMIT Internal Medicine; ATTEND Internal Medicine
PROC: 5A1D00Z (ICD-10-PCS; principal; 2016-05-23)
DX: I13.2 Hypertensive heart and chronic kidney disease with heart failure and with stage 5 chronic kidney disease, or end stage renal disease (principal); I50.33 Acute on chronic diastolic (congestive) heart failure; N17.9 Acute kidney failure, unspecified; E11.22 Type 2 diabetes mellitus with diabetic chronic kidney disease; E11.42 Type 2 diabetes mellitus with diabetic polyneuropathy; N18.6 End stage renal disease; I50.9 Heart failure, unspecified; E78.5 Hyperlipidemia, unspecified; D50.9 Iron deficiency anemia, unspecified; E87.5 Hyperkalemia; D63.1 Anemia in chronic kidney disease; Z99.2 Dependence on renal dialysis; Z91.018 Allergy to other foods; Z86.73 Personal history of transient ischemic attack (TIA), and cerebral infarction without residual deficits; Z82.49 Family history of ischemic heart disease and other diseases of the circulatory system; Z90.49 Acquired absence of other specified parts of digestive tract; Z91.14 Patient's other noncompliance with medication regimen; Z79.4 Long term (current) use of insulin; Z87.891 Personal history of nicotine dependence
CPT/HCPCS: 36415-UA; 71010-TC; 80048-TC; 80053-TC; 82948-90; 83036-90; 83880-TC; 84100-TC; 84484-TC; 85007-TC; 85025-TC; 85027-TC; 87340-90; 87341-90; 90937; 93005; 94760; 96374; J0885; J1815; J1940; J2270; Z7610

== ENCOUNTER 2016-07-01 02:00 | Inpatient (IN) | payer MEDICARE, MEDICAID ==
[2016-07-01] MEDS ORDERED: Albuterol/Ipratropium Neb 3 ML AERS HHN ONE ×2 (02:35→02:48)
--- NOTE | 2016-07-01 02:43 | ED Physician Chart ---
Chief Complaint/HPI - Patient Information Date Seen:: 07/01/16 Time Seen:: 02:05 Chief Complaint:: shortness of breath History of Present Illness:: 56-year-old male, end-stage renal disease on dialysis, brought in caregiver from home with increasing, constant, moderate to severe, shortness of breath 2 hours. Has associated increased tachypnea and slight anxiety. Allergies:: Allergies Allergy/AdvReac Type Severity Reaction Status Date / Time joewi Allergy Verified 05/13/16 23:49 Vitals:: Vital Signs - 8 hr 07/01/16 02:05 Temp 98.6 F HR 94 RR 22 BP 235/117 O2 Sat % 91 Historian:: Patient Review:: Nurse's Note Reviewed Review of Systems - Review of Systems Other: Complete system review otherwise unremarkable except as noted in HPI. Past Medical History - Past Medical History Past Medical History: HTN, DM, ESRD Family History: None Social History: Non Smoker, No Alcohol, No Drug Use, Other Surgical History: None Psychiatricy History: None Medication: Reviewed Family Medical History - Family Member Mother History Unknown: Yes Ethnicity: Unknown Living Status: Unknown Hx Family Cancer: No (unknown) Hx Family Coronary Artery Disease: No (unkown) Hx Family Congestive Heart Failure: No (unkown) Hx Family Hypertension: Yes Hx Family Stroke: No Hx Family Diabetes: No Hx Family Seizures: No Hx Family Dementia: No Hx Family AIDS: No Hx Family HIV: No Hx Family COPD: No Hx Family Hepatitis: No Hx Family Psychiatric Problems: No Hx Family Tuberculosis: No Brother History Unknown: Yes Ethnicity: Living Status: Hx Family Cancer: No Hx Family Coronary Artery Disease: No Hx Family Congestive Heart Failure: No Hx Family Hypertension: No Hx Family Stroke: No Hx Family Diabetes: No Hx Family Seizures: No Hx Family Dementia: No Hx Family AIDS: No Hx Family HIV: No Hx Family COPD: No Hx Family Hepatitis: No Hx Family Psychiatric Problems: No Hx Family Tuberculosis: No Physical Exam - Physical Examination Other:: INITIAL VITAL SIGNS: Reviewed by me GENERAL: Alert and interactive. In moderate respiratory distress. HEAD: Head is normocephalic and atraumatic EYES: EOMI. . No scleral icterus. No conjunctival injection ENT: Moist mucous membranes. NECK: Supple. No masses. Full range of motion RESPIRATORY: Tachypneic, left-sided crackles throughout the lower lung field. CV: Regular rate and rhythm. No murmurs, rubs, or gallops ABDOMEN: Soft, non-distended, non-tender. No guarding. No rebound. No masses. EXTREMITIES: No deformity. No cyanosis. No edema. SKIN: Warm and dry. No obvious rashes. NEUROLOGIC: Alert and oriented. Face is symmetric. Speech is normal. Moves all extremities equally. Motor and sensory distally intact. Labs/Radiology/EKG Results - Lab Results Results: Lab Results 07/01/16 07/01/16 07/01/16 Range/Units 03:12 03:12 03:12 WBC 5.7 D (4.8-10.8) Th/cmm RBC 3.27 L (4.30-5.70) Mil/cmm Hgb 10.0 L (13.2-17.3) gm/dL Hct 29.5 L (39.0-49.0) % MCV 90.1 (80-99) fl MCH 30.5 H (26.0-30.0) pg MCHC Differential 33.9 (28.0-36.0) pg RDW 12.6 (11.5-20.0) % Plt Count 113 L (150-400) Th/cmm MPV 9.7 fl Neutrophils % 67.8 (40.0-80.0) % Lymphocytes % 18.5 L (20.0-50.0) % Monocytes % 8.7 (2.0-10.0) % Eosinophils % 4.5 (0.0-5.0) % Basophils % 0.5 (0.0-2.0) % PT 10.3 (9.5-11.5) SECONDS INR 1.04 (0.5-1.4) PTT (Actin FS) 28.1 (26.0-38.0) SECONDS Specimen Source Sample Site pH (7.35-7.45) pCO2 (35.0-45.0) mmHg pO2 (80.0-100.0) mmHg HCO3 (20.0-26.0) mmol/L Base Excess (-3.0-3.0) mmol/L O2 Saturation (92.0-100.0) % Gerry Test Vent Rate Inspired O2 Tidal Volume PEEP Pressure (ins/psv/peep) Critical Value Sodium 123 L (136-145) mEq/L Potassium 5.7 H (3.5-5.1) mEq/L Chloride 89 L (98-107) mEq/L Carbon Dioxide 26.0 (21.0-31.0) mEq/L Anion Gap 13.7 (7.0-16.0) BUN 51 H (7-25) mg/dL Creatinine 6.7 H* (0.7-1.3) mg/dL Est GFR ( Amer) 11.2 (>90) ml/min Est GFR (Non-Af Amer) 9.2 ml/min BUN/Creatinine Ratio 7.6 Glucose 879 H* (70-105) mg/dL Whole Bld Lactic Acid (0.60-2.00) mmol/L Calcium 9.2 (8.6-10.3) mg/dL Total Bilirubin 0.5 (0.3-1.0) mg/dL AST 30 (13-39) U/L ALT 36 (7-52) U/L Alkaline Phosphatase 133 H (34-104) U/L Total Protein 7.4 (6.0-8.3) gm/dL Albumin 4.3 (4.2-5.5) gm/dL Globulin 3.1 gm/dL Albumin/Globulin Ratio 1.4 (1.0-1.8) 07/01/16 07/01/16 Range/Units 03:12 04:08 WBC (4.8-10.8) Th/cmm RBC (4.30-5.70) Mil/cmm Hgb (13.2-17.3) gm/dL Hct (39.0-49.0) % MCV (80-99) fl MCH (26.0-30.0) pg MCHC Differential (28.0-36.0) pg RDW (11.5-20.0) % Plt Count (150-400) Th/cmm MPV fl Neutrophils % (40.0-80.0) % Lymphocytes % (20.0-50.0) % Monocytes % (2.0-10.0) % Eosinophils % (0.0-5.0) % Basophils % (0.0-2.0) % PT (9.5-11.5) SECONDS INR (0.5-1.4) PTT (Actin FS) (26.0-38.0) SECONDS Specimen Source Arterial Sample Site RB pH 7.38 (7.35-7.45) pCO2 45.0 (35.0-45.0) mmHg pO2 464.0 H (80.0-100.0) mmHg HCO3 26.6 H (20.0-26.0) mmol/L Base Excess 1.1 (-3.0-3.0) mmol/L O2 Saturation 100.0 (92.0-100.0) % Gerry Test Positive Vent Rate 20 Inspired O2 100 Tidal Volume 550 PEEP 5 Pressure (ins/psv/peep) NA Critical Value SN Sodium (136-145) mEq/L Potassium (3.5-5.1) mEq/L Chloride (98-107) mEq/L Carbon Dioxide (21.0-31.0) mEq/L Anion Gap (7.0-16.0) BUN (7-25) mg/dL Creatinine (0.7-1.3) mg/dL Est GFR ( Amer) (>90) ml/min Est GFR (Non-Af Amer) ml/min BUN/Creatinine Ratio Glucose (70-105) mg/dL Whole Bld Lactic Acid 0.77 (0.60-2.00) mmol/L Calcium (8.6-10.3) mg/dL Total Bilirubin (0.3-1.0) mg/dL AST (13-39) U/L ALT (7-52) U/L Alkaline Phosphatase (34-104) U/L Total Protein (6.0-8.3) gm/dL Albumin (4.2-5.5) gm/dL Globulin gm/dL Albumin/Globulin Ratio (1.0-1.8) - Radiology Results Results: Single AP VIEW Portable Chest X-ray was interpreted independently and contemporaneously by Karlie Miller MD: No cardiomegaly Normal mediastinum Pulmonary congestion but no obvious infiltrates No pneumothorax No soft tissue or bony abnormalities - EKG Interpretations Comments:: 12-lead EKG Interpretation by Karlie Miller MD: Normal Sinus Rhythm with ventricular rate of 79 beats per minute Normal axis Normal intervals No acute ST or T wave changes. No obvious STEMI Assessment - Assessment General Assessment: Critical Care Time: 45 minutes Treatments/Evaluations: Close monitoring and treatment of unstable vital signs, cardiorespiratory, and neurologic status, while maintaining tight balance of fluid, respiratory, and cardiac interventions. This time includes discussing the case with the patient and the patient's family. This time does not include all procedures stated elsewhere in this record. This time also includes reviewing old records, labs and radiological studies. This time includes examining and re-examining the patient. Additionally, this time also includes arranging care with admitting and consulting physicians. Critical Care Time: 45 - Procedures Procedures:: Intubation Endotracheal Intubation by me, Dr. Karlie Miller M.D.: Pre assessment performed. See preceding note for details. Pre-oxygenation performed with 100% oxygen RSI: Performed w/o complication or hypoxic events. Medications as ordered. Blade: MAC 4 ET Tube: 7.5 cm Depth: 23 cm at the lip Compl: No hypoxic events or bradycardia Intubation confirmed by colorimetric CO2, equal breath sounds, quiet over the stomach. Chest X-ray 1V Interpreted by me: 2 cm above the trent ET tube. Normal soft tissue, No pneumothorax. ED Septic Shock - . Is Septic Shock (SBP<90, OR Lactate>4 mmol\L) present?: No - <6hrs of presentation: Vital Signs: Vital Signs - 8 hr 07/01/16 02:05 Temp 98.6 F HR 94 RR 22 BP 235/117 O2 Sat % 91 Reassessment (Disposition) - Reassessment Reassessment:: This patient arrived in respiratory distress and rapidly went into respiratory failure. He was rapidly intubated. He has multiple comorbidities including end -stage renal disease on hemodialysis. While he initially appears to be fluid overloaded with crackles in the lung castellano and jugular venous distention, his blood sugar was 879. Patient has hyperosmolar hyperglycemic state. This is complicated by his renal failure but we will give bolus of IV fluids. Have established Hinojosa catheter. Gave IV insulin. Blood pressure has been problematic. Continues to be severely an elevated. Nitro paste was applied. Propofol drip going. Hydralazine IV administered. Patient was stabilized. Discussed case with the admitting physician Dr. Gregory. Patient transferred to ICU under the care of Dr. Gregory. Reassessment Condition:: Improved - Diagnosis Diagnosis:: Respiratory failure Hyperosmolar hyperglycemic state Hypertensive emergency End-stage renal disease on dialysis Anemia, normocytic, chronic disease Hypertension - Patient Disposition Discharge/Transfer:: Acute Care w/in this hosp Admitted to:: ICU Admitting Medical Physician:: Francisco Gregory Time:: 04:41 Condition at Disposition:: Critical ED Discharge Plan - Patient Disposition Admit/Discharge/Transfer: Acute Care w/in this hosp Condition at Disposition: Critical
[2016-07-01] MEDS ORDERED: NITROGLYCERIN OINT 2% 1 INCH PACKET TP STA (02:46)
[2016-07-01] MEDS ORDERED: cefTRIAXone 1 GM in Sodium Chloride 0.9% 50 ML IV ONE (02:48)
[2016-07-01] MEDS ORDERED: NITROGLYCERIN OINT 2% 1 INCH PACKET TP ONE (02:49)
[2016-07-01] MEDS ORDERED: Morphine Sulfate 4 mg/mL 1mL Syr IVP ONE (03:04)
[2016-07-01 03:23] LABS: % BASOPHILS 0.5 % (0.0-2.0); % EOSINOPHILS 4.5 % (0.0-5.0); % LYMPHOCYTES 18.5 % (20.0-50.0); % MONOCYTES 8.7 % (2.0-10.0); % NEUTROPHILS 67.8 % (40.0-80.0); HEMATOCRIT 29.5 % (39.0-49.0); MEAN CELL VOLUME 90.1 fl (80-99); MEAN CORPUSCULAR HEMOGLOBIN 30.5 pg (26.0-30.0); MEAN CORPUSCULAR HGB CONC 33.9 pg (28.0-36.0); MEAN PLATELET VOLUME 9.7 fl; NEUTROPHILE ABSOLUTE 3.8 Th/cmm (1.8-8.0); PLATELET COUNT 113 Th/cmm (150-400); RED BLOOD COUNT 3.27 Mil/cmm (4.30-5.70); RED CELL DISTRIBUTION WIDTH 12.6 % (11.5-20.0)
[2016-07-01 03:32] LABS: INR 1.04 (0.5-1.4); PROTHROMBIN TIME (TEST) 10.3 SECONDS (9.5-11.5)
[2016-07-01 03:33] LABS: WHITE BLOOD COUNT 5.7 Th/cmm (4.8-10.8)
[2016-07-01 03:45] LABS: ALB/GLOB RATIO 1.4 (1.0-1.8); ANION GAP 13.7 (7.0-16.0); BILIRUBIN,TOTAL 0.5 mg/dL (0.3-1.0); BUN/CREATININE RATIO 7.6; CALCIUM SERUM 9.2 mg/dL (8.6-10.3); POTASSIUM SERUM 5.7 mEq/L (3.5-5.1)
[2016-07-01] MEDS ORDERED: INSULIN HUMAN REGULAR 100 UNITS/ML UNIT SUBQ ONE (04:07)
[2016-07-01 04:08] LABS: CREATININE - SERUM 6.7 mg/dL (0.7-1.3)
[2016-07-01] MEDS ORDERED: Sodium Chloride 0.9% 1,000 ML IV ONE ×2 (04:09→04:13)
[2016-07-01 04:21] LABS: ABG SOURCE Arterial; BE(B) 1.1 mmol/L (-3.0-3.0); HCO3 26.6 mmol/L (20.0-26.0); pH 7.38 (7.35-7.45)
[2016-07-01 04:22] LABS: ALLEN TEST Positive; FIO2 100; MECH RATE 20; MECH VT 550
[2016-07-01 04:23] LABS: CRITICAL VALUES REPORTED BY SN
[2016-07-01] MEDS ORDERED: INSULIN HUMAN REGULAR 100 UNITS/ML UNIT IVP ONE ×2 (04:29→05:27)
[2016-07-01 04:59] LABS: LIPASE 20 U/L (11-82)
[2016-07-01 05:11] LABS: TROP I 0.06 ng/mL (0.01-0.05)
[2016-07-01] MEDS ORDERED: Promethazine DM 6.25/15mg-5mL 5 ML SYR PO PRN (06:03)
[2016-07-01] MEDS ORDERED: Diltiazem 5 mg/mL 5mL Vial IVP PRN (06:07)
[2016-07-01] MEDS ORDERED: Sodium Chloride 0.9% 1,000 ML IV SCH (06:15)
[2016-07-01] MEDS ORDERED: Albuterol Nebulizer 2.5mg/3mL HHN ONE (06:33)
[2016-07-01] MEDS ORDERED: Ipratropium Neb 0.5 mg/2.5 mL UD HHN ONE (06:34)
[2016-07-01 07:59] VITALS: BP 00/00
[2016-07-01] MEDS ORDERED: PROTEIN HYDROLYS PO SCH (09:00)
[2016-07-01] MEDS ORDERED: AMINO ACIDS PO SCH (09:00)
--- NOTE | 2016-07-01 09:17 | Diagnostic Imaging Report ---
Portable chest x-ray HISTORY: Pain The heart is enlarged. Hazy bilateral infiltrates. Findings may be associated pulmonary edema and a degree of congestive heart failure. Clinical correlation is needed. No pleural fluid evident. IMPRESSION: 1. Cardiomegaly with hazy interstitial lung markings. The findings may be associated with edema and congestive heart failure. Clinical correlation is needed.
--- NOTE | 2016-07-01 09:20 | Diagnostic Imaging Report ---
Portable chest x-ray HISTORY: Shortness of breath, status post intubation Compared to prior exam taken earlier today (0303 hours), an endotracheal tube has been inserted. The tip is approximately 0.5 cm above the trent. This should be pulled back approximately 2.0 cm. The heart remains enlarged. There appears to be somewhat more focal infiltrate in the right lower lobe. Pneumonia cannot be excluded. Clinical correlation is needed. IMPRESSION: 1. Endotracheal tube tip approximately 0.5 cm above the trent. This should be pulled back approximately 2.0 cm 2. Infiltrate right lower lobe. Pneumonia cannot be excluded. Clinical correlation is needed 3. Persistent cardiomegaly
[2016-07-01] MEDS ORDERED: Morphine Sulfate 2 mg/mL 1mL Syr ONE (11:27)
[2016-07-01] MEDS: Morphine Sulfate 2 mg/mL 1mL Syr IVP PRN ×2 (11:30→22:42)
[2016-07-01] MEDS: Ipratropium Neb 0.5 mg/2.5 mL UD HHN SCH ×3 (12:07→19:19)
[2016-07-01] MEDS: Albuterol Nebulizer 2.5mg/3mL HHN SCH ×3 (12:07→19:19)
[2016-07-01] MEDS: INSULIN ASPART, RECOMBINANT 100 UNITS/ML SUBQ SCH ×3 (12:30→21:49)
--- NOTE | 2016-07-01 12:40 | Internal Medicine Prog Note ---
Internal Medicine Subjective - Subjective Service Date: 07/01/16 ([id number] hnp dictated ) Internal Medicine Objective - Results Result Diagrams: 07/01/16 03:12 07/01/16 03:12 Recent Labs: Laboratory Last Values WBC 5.7 Th/cmm (4.8-10.8) D 07/01/16 03:12 RBC 3.27 Mil/cmm (4.30-5.70) L 07/01/16 03:12 Hgb 10.0 gm/dL (13.2-17.3) L 07/01/16 03:12 Hct 29.5 % (39.0-49.0) L 07/01/16 03:12 MCV 90.1 fl (80-99) 07/01/16 03:12 MCH 30.5 pg (26.0-30.0) H 07/01/16 03:12 MCHC Differential 33.9 pg (28.0-36.0) 07/01/16 03:12 RDW 12.6 % (11.5-20.0) 07/01/16 03:12 Plt Count 113 Th/cmm (150-400) L 07/01/16 03:12 MPV 9.7 fl 07/01/16 03:12 Neutrophils % 67.8 % (40.0-80.0) 07/01/16 03:12 Lymphocytes % 18.5 % (20.0-50.0) L 07/01/16 03:12 Monocytes % 8.7 % (2.0-10.0) 07/01/16 03:12 Eosinophils % 4.5 % (0.0-5.0) 07/01/16 03:12 Basophils % 0.5 % (0.0-2.0) 07/01/16 03:12 PT 10.3 SECONDS (9.5-11.5) 07/01/16 03:12 INR 1.04 (0.5-1.4) 07/01/16 03:12 PTT (Actin FS) 28.1 SECONDS (26.0-38.0) 07/01/16 03:12 Specimen Source Arterial 07/01/16 04:08 Sample Site RB 07/01/16 04:08 pH 7.38 (7.35-7.45) 07/01/16 04:08 pCO2 45.0 mmHg (35.0-45.0) 07/01/16 04:08 pO2 464.0 mmHg (80.0-100.0) H 07/01/16 04:08 HCO3 26.6 mmol/L (20.0-26.0) H 07/01/16 04:08 Base Excess 1.1 mmol/L (-3.0-3.0) 07/01/16 04:08 O2 Saturation 100.0 % (92.0-100.0) 07/01/16 04:08 Gerry Test Positive 07/01/16 04:08 Vent Rate 20 07/01/16 04:08 Inspired O2 100 07/01/16 04:08 Tidal Volume 550 07/01/16 04:08 PEEP 5 07/01/16 04:08 Pressure (ins/psv/peep) NA 07/01/16 04:08 Critical Value SN 07/01/16 04:08 Sodium 123 mEq/L (136-145) L 07/01/16 03:12 Potassium 5.7 mEq/L (3.5-5.1) H 07/01/16 03:12 Chloride 89 mEq/L (98-107) L 07/01/16 03:12 Carbon Dioxide 26.0 mEq/L (21.0-31.0) 07/01/16 03:12 Anion Gap 13.7 (7.0-16.0) 07/01/16 03:12 BUN 51 mg/dL (7-25) H 07/01/16 03:12 Creatinine 6.7 mg/dL (0.7-1.3) H* 07/01/16 03:12 Est GFR ( Amer) 11.2 ml/min (>90) 07/01/16 03:12 Est GFR (Non-Af Amer) 9.2 ml/min 07/01/16 03:12 BUN/Creatinine Ratio 7.6 07/01/16 03:12 Glucose 879 mg/dL (70-105) H* 07/01/16 03:12 POC Glucose 414 MG/DL (70 - 105) H 07/01/16 06:51 Hemoglobin A1c % 10.1 % (4.0-6.0) H 07/01/16 03:12 Whole Bld Lactic Acid 0.77 mmol/L (0.60-2.00) 07/01/16 03:12 Calcium 9.2 mg/dL (8.6-10.3) 07/01/16 03:12 Phosphorus 6.1 mg/dL (2.5-5.0) H 07/01/16 03:12 Magnesium 2.3 mg/dL (1.9-2.7) 07/01/16 03:12 Total Bilirubin 0.5 mg/dL (0.3-1.0) 07/01/16 03:12 AST 30 U/L (13-39) 07/01/16 03:12 ALT 36 U/L (7-52) 07/01/16 03:12 Alkaline Phosphatase 133 U/L (34-104) H 07/01/16 03:12 Troponin I 0.06 ng/mL (0.01-0.05) H D 07/01/16 03:12 B-Natriuretic Peptide 2970.0 pg/mL (5.0-100.0) H 07/01/16 03:12 Total Protein 7.4 gm/dL (6.0-8.3) 07/01/16 03:12 Albumin 4.3 gm/dL (4.2-5.5) 07/01/16 03:12 Globulin 3.1 gm/dL 07/01/16 03:12 Albumin/Globulin Ratio 1.4 (1.0-1.8) 07/01/16 03:12 Lipase 20 U/L (11-82) 07/01/16 03:12 Serum Ketones MODERATE (NEGATIVE) H 07/01/16 03:12 - Physical Exam Vitals and I&O: Vital Signs Temp 96.8 F 07/01/16 12:02 Pulse 78 07/01/16 12:10 Resp 18 07/01/16 12:14 BP 187/59 07/01/16 12:02 Pulse Ox 99 07/01/16 12:10 Active Medications: Current Medications Acetaminophen (Tylenol) 650 mg PO Q4HR PRN PRN Reason: Pain (Mild) Stop: 08/30/16 06:02 Albuterol Sulfate (Albuterol 2.5mg/3ml Neb Ud) 2.5 mg HHN QIDRT CECE Stop: 08/30/16 08:59 Last Admin: 07/01/16 12:07 Dose: 2.5 mg Aspirin (Aspirin Chewable) 81 mg PO DAILY [facility] Stop: 08/30/16 08:59 Atorvastatin Calcium (Lipitor) 20 mg PO HS [facility] PRN Reason: Protocol Stop: 08/30/16 20:59 Calcium Acetate (Phoslo) 667 mg PO TID CE[facility] Stop: 08/30/16 08:59 Carvedilol (Coreg) 6.25 mg PO BID CE[facility] Stop: 08/30/16 08:59 Last Admin: 07/01/16 11:07 Dose: 6.25 mg Cholecalciferol (Vitamin D3) 5,000 iu PO DAILY [facility] Stop: 08/30/16 08:59 Clonidine HCl (Catapres) 0.2 mg PO TID [facility] Stop: 08/30/16 08:59 Last Admin: 07/01/16 08:24 Dose: 0.2 mg Diltiazem HCl (Cardizem) 20 mg IVP Q4H PRN PRN Reason: HR Greater than 130 per min Stop: 08/30/16 06:06 Docusate Sodium (Colace) 100 mg PO BID [facility] Stop: 08/30/16 08:59 Epoetin Nate (Epogen) 5,000 units SUBQ MoWeFr [facility] Stop: 08/31/16 06:02 Fenofibrate (Tricor) 134 mg PO HS [facility] Stop: 08/30/16 20:59 Ferrous Sulfate (Iron) 325 mg PO QPM 1700 [facility] Stop: 08/30/16 16:59 Folic Acid (Folate) 1 mg PO DAILY [facility] Stop: 08/30/16 08:59 Hydralazine HCl (Apresoline) 100 mg PO Q8HR [facility] Stop: 08/30/16 12:59 Propofol (Diprivan) 1,000 mg in 100 mls @ 2.109 mls/hr IV TITR CECE; 5 MCG/KG/ MIN PRN Reason: Protocol Stop: 08/30/16 03:18 Last Admin: 07/01/16 04:16 Dose: 5 mcg/kg/min, 2.109 mls/hr Cefepime HCl 0.5 gm/ Dextrose 50 mls @ 100 mls/hr IV Q12HR@0000,1200 [facility] Stop: 08/30/16 11:59 Sodium Chloride (Nacl 0.9%) 1,000 mls @ 60 mls/hr IV .[id number] [facility] Stop: 08/30/16 06:14 Last Admin: 07/01/16 09:41 Dose: 60 mls/hr Vancomycin HCl 1 gm/ Sodium (Chloride) 250 mls @ 166.667 mls/hr IV Q24H [facility] Stop: 08/30/16 06:14 Insulin Aspart (Novolog) 0 units SUBQ ACHS CE[facility] PRN Reason: Protocol Stop: 08/30/16 07:29 Ipratropium [place] (Atrovent Neb 0.5mg/2.5ml) 0.5 mg HHN QIDRT [facility] Stop: 08/30/16 11:01 Last Admin: 07/01/16 12:07 Dose: 0.5 mg Levothyroxine Sodium (Synthroid) 0.1 mg PO QDAC [facility] Stop: 08/30/16 07:29 Lorazepam (Ativan) 1 mg IV Q4HR PRN; Protocol PRN Reason: Seizure Stop: 08/30/16 06:06 Last Admin: 07/01/16 06:51 Dose: 1 mg Minoxidil (Loniten) 2.5 mg PO BID [facility] Stop: 08/30/16 08:59 Last Admin: 07/01/16 11:09 Dose: 2.5 mg Miscellaneous (Amino Acids/Protein Hydrolys [Pro-Stat 101 Liquid]) 30 ml PO DAILY [facility] Stop: 08/30/16 08:59 Morphine Sulfate (Morphine) 2 mg IVP Q4HR PRN PRN Reason: Pain (Severe) Stop: 08/30/16 06:06 Last Admin: 07/01/16 11:30 Dose: 2 mg Nifedipine (Procardia Xl) 30 mg PO BID [facility] Stop: 08/30/16 08:59 Ondansetron HCl (Zofran) 4 mg IV Q8H PRN PRN Reason: Nausea / Vomiting Stop: 08/30/16 06:10 Last Admin: 07/01/16 11:31 Dose: 4 mg Promethazine HCl/Dextromethorphan (Phenergan Dm 6.25/15mg-5 Ml) 5 ml PO Q6HR PRN PRN Reason: Cough Stop: 08/30/16 06:02 Sennosides (Senna Plus 50 Mg-8.6 Mg) 8.6 tab PO HS [facility] Stop: 08/30/16 20:59 Valsartan (Diovan) 160 mg PO BID [facility] Stop: 08/30/16 08:59 Last Admin: 07/01/16 11:08 Dose: 160 mg Vitamin B Complex/Vit C/Folic Acid (Vitamin B Complex W/Vitamin C) 1 tab PO DAILY [facility] Stop: 08/30/16 08:59 - Procedures Procedures: Procedures Procedure Code Date BLOOD TRANSFUSION SERVICE 75432 03/25/15 ESRD HOME PT SERV P DAY 20+ 06933 07/19/15 HEMODIALYSIS 39.95 12/07/14 HEMODIALYSIS REPEATED EVAL 89391 03/25/15 INJECT/INFUSE NEC 99.29 10/13/14 PERFORMANCE OF URINARY FILTRATION, MULTIPLE [id number] 05/13/16 PERFORMANCE OF URINARY FILTRATION, SINGLE [id number] 05/23/16 TRANSFUSE NONAUT RED BLOOD CELLS IN PERIPH VEIN, PERC 27011O0 03/25/15 Internal Medicine Assmt/Plan - Assessment Assessment: RESPIRATORY FAILURE UNCONTROLLED DIABETES UNCONTROLLED HYPERTENSION ESRD ON HD CHF DM-2 NONCOMPLIANCE HYPERKALEMIA HYPONATREMIA
[2016-07-01 12:54] LABS: BE(B) 1.5 mmol/L (-3.0-3.0); HCO3 24.6 mmol/L (20.0-26.0); pH 7.48 (7.35-7.45)
[2016-07-01 12:55] LABS: ABG SOURCE Arterial; CRITICAL VALUES REPORTED BY SH; FIO2 35; MECH RATE 12; MECH VT 500
[2016-07-01] MEDS: Aspirin 81mg Chewable Tab PO SCH (13:06)
[2016-07-01] MEDS: Levothyroxine 0.1 Mg Tab PO SCH (13:07)
[2016-07-01] MEDS: NIFEdipine 30 mg ER Tab PO SCH ×2 (13:08→16:28)
[2016-07-01] MEDS: Vitamin B Complex w/Vitamin C Tab PO SCH (13:09)
[2016-07-01] MEDS ORDERED: Probiotic Screen MC PRN (15:26)
--- NOTE | 2016-07-01 16:03 | History & Physical ---
CHIEF COMPLAINT: Shortness of breath. HISTORY OF PRESENT ILLNESS: This is a 56-year-old male who is admitted to the ICU unit. The patient was brought in by caregiver from home with increasing shortness of breath for 2 hours. In the ER, the patient was orally intubated and was placed on a ventilator. At this time, the patient is now on ____. The patient was recently at this hospital on 05/23/2016 for shortness of breath and chest pain as well. PAST MEDICAL HISTORY: ESRD on dialysis, diabetes, noncompliant, CHF, hypertension. PAST SURGICAL HISTORY: ____ cholecystectomy. MEDICATIONS: Hydralazine, [place], Lipitor, insulin, melatonin, Colace, losartan, Epogen, iron, minoxidil, calcium and vitamin D3. ALLERGIES: No drug allergies. SOCIAL HISTORY: The patient has a history of smoking and drinking in the past. Denies any illicit drug usage. FAMILY HISTORY: Noncontributory. REVIEW OF SYSTEMS: Unable to obtain at this time. PHYSICAL EXAMINATION: GENERAL: The patient is well developed, well nourished, appears chronically ill. VITAL SIGNS: Temperature 96.8, heart rate 71, blood pressure 187/59, respirations 14, O2 sat 100%. HEENT: Head; normocephalic, atraumatic. NECK: Supple. No mass. LUNGS: Rhonchi bilaterally upon auscultation. CARDIOVASCULAR: Regular rhythm. No murmurs or gallops. ABDOMEN: Soft, nontender, nondistended. Positive bowel sounds in all 4 quadrants. LABORATORY DATA: WBC 5.7, H and H 10.0 and 29.5, platelet of 113. ABG, pH 7.38, H, CO2 of 45.0, bicarb 26.6. Sodium 123, potassium 5.7, chloride 89, BUN 51, creatinine 6.7, glucose of ____. BNP of 2970. DIAGNOSTICS: The patient had a chest x-ray done and the impression is cardiomegaly with ____ interstitial lung markings. Findings may be associated with edema, CHF. ASSESSMENT: Respiratory failure, uncontrolled diabetes, uncontrolled hypertension, hyponatremia, hyperkalemia, end-stage renal disease on dialysis, noncompliance. PLAN: The patient to be admitted to the ICU unit. The patient will have a pulmonary consultation with Dr. Theodore and also with Dr. Lebron as well. The patient to be kept n.p.o. for now. The patient will be kept on IV antibiotics of vancomycin 1 gram IV q. 24h and also Maxipime. We will await for sputum and blood cultures. JOB# [id number]
[2016-07-01] MEDS: Ferrous Sulfate 325 MG TAB PO SCH (16:29)
[2016-07-01] MEDS: D5-0.9%NS 1,000 ML IV SCH (16:39)
[2016-07-01] MEDS: Fenofibrate, Micronized 134 mg Cap PO SCH (22:02)
[2016-07-01] MEDS: Atorvastatin Calcium 10 MG TAB PO SCH (22:02)
--- NOTE | 2016-07-01 22:59 | Admit Criteria Form ---
Admit Criteria Forms - Admit Criteria Diagnosis: RESPIRATORY FAILURE [facility] Clinical Indications for Admission to Inpatient Care (Place 'X' for any and all applicable criteria): Hospital admission is needed for appropriate care of the patient because of acute respiratory failure or insufficiency as indicated by ANY ONE of the following(1)(2)(3)(4)(5)(6)(7)(8): [ ]I. Mechanical ventilation needed (acute invasive or noninvasive) [ X]II. Severe ventilation deficit as indicated by ANY ONE of the following (9 ) [ ]a) Respiratory acidosis (pH less than 7.32 and partial pressure of carbon dioxide greater than 40 mm Hg (5.3 kPa)) [X ]b) Partial pressure of carbon dioxide greater than 44 mm Hg (5.9 kPa) (new) [ ]c) Airflow measurements less than 25% of predicted (eg, peak expiratory flow rate less than 100 L/minute) [ ]d) Forced vital capacity less than 15 mL/kg of ideal body weight, or 50% decrease in vital capacity from baseline [ ]III. Noncardiac pulmonary edema not resolving with rapid emergency treatment (8) [ ]IV. Severe respiratory distress as indicated by ANY ONE of the following: [ ]a) Severe tachypnea (respiratory rate greater than 30, greater than 45 for 6-month-old, greater than 60 for ) [ ]b) Severe hypoxemia (partial pressure of oxygen less than 50 mm Hg ( 6.7 kPa) on greater than 50% oxygen or partial pressure of oxygen to FIO2 ratio less than 200) [ ]c) Mental status deterioration from respiratory disease [ ]V. Airway obstruction or inadequate protection [A](10)(11) The original [employer] content created by [employer] has been revised. The portions of the content which have been revised are identified through the use of italic text or in bold, and [employer] has neither reviewed nor approved the modified material. All other unmodified content is copyright [employer]. Please see references footnoted in the original [employer] edition 2016 Admit Criteria Met?: Yes
[2016-07-02] MEDS: Docusate Sodium/Senna Tab PO SCH (00:07)
[2016-07-02] MEDS: Morphine Sulfate 2 mg/mL 1mL Syr IVP PRN ×5 (02:54→23:19)
--- NOTE | 2016-07-02 05:01 | Consultation ---
REFERRING PHYSICIAN: Dr. Gregory. Thank you very much Dr. Gregory for this consultation. HISTORY OF PRESENT ILLNESS: This is a 56-year-old male with a history of end-stage renal disease, acute respiratory distress, severe hypertension, required to be intubated for pending respiratory failure. The patient is on dialysis, now appears to be doing better, improved. The patient has had this problem before and required to be intubated for pulmonary edema and severe respiratory distress. PAST MEDICAL HISTORY: CHF, end-stage renal disease. SOCIAL HISTORY: No smoking, drinking. REVIEW OF SYSTEMS: Unable to obtain because of the patient's condition. PHYSICAL EXAMINATION: GENERAL: The patient is awake, not in acute distress. VITAL SIGNS: Temperature 98.5, pulse 60, respiration is 18, blood pressure is 200/102, saturation 100%. HEENT: Atraumatic, normocephalic. Eyes: Pupils reactive to light and accommodation. Ears, nose and throat normal. NECK: Supple. No JVD. CHEST: There are rales bilaterally. HEART: Regular rate and rhythm. ABDOMEN: Soft. EXTREMITIES: No edema. LABORATORY DATA: WBC is 5.7, hemoglobin 10.0 and ABGs: pH 7.4, pCO2 32, pO2 104, bicarbonate 24. Sodium is 123, creatinine is 6.7. Chest x-ray central pulmonary edema, possible infiltrate right lower lobe. G-tube in place. IMPRESSION: 1. This is a 56-year-old man with respiratory failure. 2. Pulmonary edema. 3. End-stage renal disease admitted to the hospital for poorly controlled hypertension. 4. Possible pneumonia. PLAN: 1. Ventilator support. 2. Hemodialysis 3. IV antibiotics. Follow up chest x-ray and hopefully can be extubate once stabilized. JOB# [id number] KENTRELL
[2016-07-02] MEDS: Ipratropium Neb 0.5 mg/2.5 mL UD HHN SCH ×4 (06:40→19:05)
[2016-07-02] MEDS: Albuterol Nebulizer 2.5mg/3mL HHN SCH ×4 (06:40→19:05)
[2016-07-02] MEDS: Levothyroxine 0.1 Mg Tab PO SCH (06:52)
[2016-07-02] MEDS: INSULIN ASPART, RECOMBINANT 100 UNITS/ML SUBQ SCH ×3 (07:30→16:32)
[2016-07-02] MEDS: NIFEdipine 30 mg ER Tab PO SCH (08:39)
[2016-07-02 08:40] LABS: % BASOPHILS 0.5 % (0.0-2.0); % EOSINOPHILS 1.4 % (0.0-5.0); % LYMPHOCYTES 17.6 % (20.0-50.0); % MONOCYTES 10.3 % (2.0-10.0); % NEUTROPHILS 70.2 % (40.0-80.0); HEMOGLOBIN 8.9 gm/dL (13.2-17.3); MEAN CELL VOLUME 88.1 fl (80-99); MEAN CORPUSCULAR HEMOGLOBIN 30.5 pg (26.0-30.0); MEAN CORPUSCULAR HGB CONC 34.6 pg (28.0-36.0); MEAN PLATELET VOLUME 9.3 fl; NEUTROPHILE ABSOLUTE 3.5 Th/cmm (1.8-8.0); PLATELET COUNT 110 Th/cmm (150-400); RED BLOOD COUNT 2.92 Mil/cmm (4.30-5.70); RED CELL DISTRIBUTION WIDTH 12.8 % (11.5-20.0)
[2016-07-02] MEDS: Aspirin 81mg Chewable Tab PO SCH (08:41)
[2016-07-02] MEDS: Lactobacillus Rhamnosus 10 Billion CFU Capsule PO SCH (08:41)
[2016-07-02] MEDS: Vitamin B Complex w/Vitamin C Tab PO SCH (08:41)
[2016-07-02 08:47] LABS: HEMATOCRIT 25.7 % (39.0-49.0)
[2016-07-02 08:55] LABS: ALB/GLOB RATIO 1.3 (1.0-1.8); ANION GAP 8.7 (7.0-16.0); BILIRUBIN,TOTAL 0.5 mg/dL (0.3-1.0); BUN/CREATININE RATIO 6.2; CALCIUM SERUM 9.3 mg/dL (8.6-10.3); CARBON DIOXIDE 25.9 mEq/L (21.0-31.0)
[2016-07-02 09:23] LABS: POTASSIUM SERUM 3.6 mEq/L (3.5-5.1); VANCOMYCIN RANDOM 15.4 ug/mL (5.0-40.0)
[2016-07-02 09:24] LABS: CREATININE - SERUM 5.2 mg/dL (0.7-1.3)
--- NOTE | 2016-07-02 12:04 | Diagnostic Imaging Report ---
Portable chest x-ray HISTORY: Shortness of breath, nasogastric tube placement Compared with prior exam of April 30, 2017, a nasogastric tube extends into the region of the stomach. Previously noted infiltrate in the right lower lobe has resolved. No other focal processes. IMPRESSION: 1. Nasogastric tube extending into the stomach 2. Clearing right lower lobe with no definite focal pulmonary processes
--- NOTE | 2016-07-02 12:21 | Internal Medicine Prog Note ---
Internal Medicine Subjective - Subjective Service Date: 07/02/16 (remains orally intubated, on vent patient was had dialysis yesterday 4L out) Patient seen and examined:: with staff Internal Medicine Objective - Results Result Diagrams: 07/02/16 07:50 07/02/16 07:50 Recent Labs: Laboratory Last Values WBC 5.0 Th/cmm (4.8-10.8) 07/02/16 07:50 RBC 2.92 Mil/cmm (4.30-5.70) L 07/02/16 07:50 Hgb 8.9 gm/dL (13.2-17.3) L 07/02/16 07:50 Hct 25.7 % (39.0-49.0) L D 07/02/16 07:50 MCV 88.1 fl (80-99) 07/02/16 07:50 MCH 30.5 pg (26.0-30.0) H 07/02/16 07:50 MCHC Differential 34.6 pg (28.0-36.0) 07/02/16 07:50 RDW 12.8 % (11.5-20.0) 07/02/16 07:50 Plt Count 110 Th/cmm (150-400) L 07/02/16 07:50 MPV 9.3 fl 07/02/16 07:50 Neutrophils % 70.2 % (40.0-80.0) 07/02/16 07:50 Lymphocytes % 17.6 % (20.0-50.0) L 07/02/16 07:50 Monocytes % 10.3 % (2.0-10.0) H 07/02/16 07:50 Eosinophils % 1.4 % (0.0-5.0) 07/02/16 07:50 Basophils % 0.5 % (0.0-2.0) 07/02/16 07:50 PT 10.3 SECONDS (9.5-11.5) 07/01/16 03:12 INR 1.04 (0.5-1.4) 07/01/16 03:12 PTT (Actin FS) 28.1 SECONDS (26.0-38.0) 07/01/16 03:12 Specimen Source Arterial 07/01/16 12:40 Sample Site RB 07/01/16 12:40 pH 7.48 (7.35-7.45) H 07/01/16 12:40 pCO2 33.0 mmHg (35.0-45.0) L 07/01/16 12:40 pO2 104.0 mmHg (80.0-100.0) H 07/01/16 12:40 HCO3 24.6 mmol/L (20.0-26.0) 07/01/16 12:40 Base Excess 1.5 mmol/L (-3.0-3.0) 07/01/16 12:40 O2 Saturation 98.0 % (92.0-100.0) 07/01/16 12:40 Gerry Test NA 07/01/16 12:40 Vent Rate 12 07/01/16 12:40 Inspired O2 35 07/01/16 12:40 Tidal Volume 500 07/01/16 12:40 PEEP 5 07/01/16 12:40 Pressure (ins/psv/peep) NA 07/01/16 12:40 Critical Value SH 07/01/16 12:40 Sodium 136 mEq/L (136-145) D 07/02/16 07:50 Potassium 3.6 mEq/L (3.5-5.1) D 07/02/16 07:50 Chloride 105 mEq/L (98-107) 07/02/16 07:50 Carbon Dioxide 25.9 mEq/L (21.0-31.0) 07/02/16 07:50 Anion Gap 8.7 (7.0-16.0) 07/02/16 07:50 BUN 32 mg/dL (7-25) H 07/02/16 07:50 Creatinine 5.2 mg/dL (0.7-1.3) H* 07/02/16 07:50 Est GFR ( Amer) 14.9 ml/min (>90) 07/02/16 07:50 Est GFR (Non-Af Amer) 12.3 ml/min 07/02/16 07:50 BUN/Creatinine Ratio 6.2 07/02/16 07:50 Glucose 386 mg/dL (70-105) H 07/02/16 07:50 POC Glucose 362 MG/DL (70 - 105) H 07/02/16 06:12 Hemoglobin A1c % 10.1 % (4.0-6.0) H 07/01/16 03:12 Whole Bld Lactic Acid 0.77 mmol/L (0.60-2.00) 07/01/16 03:12 Calcium 9.3 mg/dL (8.6-10.3) 07/02/16 07:50 Phosphorus 6.1 mg/dL (2.5-5.0) H 07/01/16 03:12 Magnesium 2.0 mg/dL (1.9-2.7) 07/02/16 07:50 Total Bilirubin 0.5 mg/dL (0.3-1.0) 07/02/16 07:50 AST 27 U/L (13-39) 07/02/16 07:50 ALT 29 U/L (7-52) 07/02/16 07:50 Alkaline Phosphatase 63 U/L (34-104) 07/02/16 07:50 Ammonia 37 umol/L (16-53) 07/02/16 07:50 Troponin I 0.09 ng/mL (0.01-0.05) H* D 07/02/16 07:50 B-Natriuretic Peptide 2970.0 pg/mL (5.0-100.0) H 07/01/16 03:12 Total Protein 6.3 gm/dL (6.0-8.3) 07/02/16 07:50 Albumin 3.6 gm/dL (4.2-5.5) L 07/02/16 07:50 Globulin 2.7 gm/dL 07/02/16 07:50 Albumin/Globulin Ratio 1.3 (1.0-1.8) 07/02/16 07:50 Lipase 20 U/L (11-82) 07/01/16 03:12 Random Vancomycin 15.4 ug/mL (5.0-40.0) 07/02/16 07:50 Serum Ketones MODERATE (NEGATIVE) H 07/01/16 03:12 - Physical Exam Vitals and I&O: Vital Signs Temp 98.8 F 07/02/16 10:00 Pulse 68 07/02/16 12:13 Resp 20 07/02/16 10:00 BP 151/71 07/02/16 12:13 Pulse Ox 97 07/02/16 11:12 Intake & Output 07/01/16 07/02/16 07/02/16 18:59 06:59 18:59 Intake Total 0 150 Output Total 4000 0 Balance -4000 0 150 Weight (lbs) 150 lb Intake: Oral 0 Other 150 Output: Urine 4000 0 Stool 0 Other: # Voids 0 # Bowel Movements 1 0 0 Active Medications: Current Medications Acetaminophen (Tylenol) 650 mg PO Q4HR PRN PRN Reason: Pain (Mild) Stop: 08/30/16 06:02 Albuterol Sulfate (Albuterol 2.5mg/3ml Neb Ud) 2.5 mg HHN QIDRT [facility] Stop: 08/30/16 08:59 Last Admin: 07/02/16 11:12 Dose: 2.5 mg Aspirin (Aspirin Chewable) 81 mg PO DAILY [facility] Stop: 08/30/16 08:59 Last Admin: 07/02/16 08:41 Dose: 81 mg Atorvastatin Calcium (Lipitor) 20 mg PO HS [facility] PRN Reason: Protocol Stop: 08/30/16 20:59 Last Admin: 07/01/16 22:02 Dose: 20 mg Calcium Acetate (Phoslo) 667 mg PO TID [facility] Stop: 08/30/16 08:59 Last Admin: 07/02/16 08:41 Dose: 667 mg Carvedilol (Coreg) 12.5 mg PO BID [facility] Stop: 08/30/16 23:30 Last Admin: 07/02/16 08:36 Dose: 12.5 mg Cholecalciferol (Vitamin D3) 5,000 iu PO DAILY [facility] Stop: 08/30/16 08:59 Last Admin: 07/02/16 08:37 Dose: 5,000 iu Clonidine HCl (Catapres) 0.2 mg PO TID [facility] Stop: 08/30/16 08:59 Last Admin: 07/02/16 08:33 Dose: 0.2 mg Clonidine HCl (Catapres) 0.1 mg PO Q6HR PRN PRN Reason: sbp 170 mmhg and up Stop: 08/31/16 01:25 Last Admin: 07/02/16 01:49 Dose: 0.1 mg Diltiazem HCl (Cardizem) 20 mg IVP Q4H PRN PRN Reason: HR Greater than 130 per min Stop: 08/30/16 06:06 Docusate Sodium (Colace) 100 mg PO BID [facility] Stop: 08/30/16 08:59 Last Admin: 07/02/16 08:41 Dose: 100 mg Enalaprilat (Vasotec) 1.25 mg IVP Q6HR PRN PRN Reason: SBP 170 mmhg and above Stop: 08/31/16 05:59 Last Admin: 07/02/16 06:06 Dose: 1.25 mg Epoetin Nate (Epogen) 5,000 units SUBQ MoWeFr [facility] Stop: 08/31/16 06:02 Fenofibrate (Tricor) 134 mg PO HS [facility] Stop: 08/30/16 20:59 Last Admin: 07/01/16 22:02 Dose: 134 mg Ferrous Sulfate (Iron) 325 mg PO QPM 1700 [facility] Stop: 08/30/16 16:59 Last Admin: 07/01/16 16:29 Dose: 325 mg Folic Acid (Folate) 1 mg PO DAILY [facility] Stop: 08/30/16 08:59 Last Admin: 07/02/16 08:41 Dose: 1 mg Heparin Sodium (Porcine) (Heparin) 5,000 units SUBQ Q8H [facility] Stop: 08/31/16 08:59 Hydralazine HCl (Apresoline) 100 mg PO Q8HR [facility] Stop: 08/30/16 12:59 Last Admin: 07/02/16 12:13 Dose: 100 mg Cefepime HCl 0.5 gm/ Dextrose 50 mls @ 100 mls/hr IV Q12HR@0000,1200 [facility] Stop: 08/30/16 11:59 Last Admin: 07/02/16 00:24 Dose: 100 mls/hr Dextrose/Sodium Chloride (D5-0.9%Ns) 1,000 mls @ 50 mls/hr IV .Q20H [facility] Stop: 08/30/16 15:59 Last Admin: 07/01/16 16:39 Dose: 50 mls/hr Vancomycin HCl 1 gm/ Sodium (Chloride) 250 mls @ 165 mls/hr IV ONCE ONE Stop: 07/02/16 14:30 Insulin Aspart (Novolog) 0 units SUBQ ACHS [facility] PRN Reason: Protocol Stop: 08/30/16 07:29 Last Admin: 07/02/16 07:30 Dose: 8 units Ipratropium [place] (Atrovent Neb 0.5mg/2.5ml) 0.5 mg HHN QIDRT [facility] Stop: 08/30/16 11:01 Last Admin: 07/02/16 11:12 Dose: 0.5 mg Lactobacillus Rhamnosus (Culturelle) 1 each PO DAILY [facility] Stop: 08/31/16 08:59 Last Admin: 07/02/16 08:41 Dose: 1 each Levothyroxine Sodium (Synthroid) 0.1 mg PO QDAC [facility] Stop: 08/30/16 07:29 Last Admin: 07/02/16 06:52 Dose: 0.1 mg Lorazepam (Ativan) 1 mg IV Q4HR PRN; Protocol PRN Reason: Seizure Stop: 08/30/16 06:06 Last Admin: 07/02/16 08:15 Dose: 1 mg Minoxidil (Loniten) 2.5 mg PO BID [facility] Stop: 08/30/16 08:59 Last Admin: 07/02/16 08:41 Dose: 2.5 mg Miscellaneous (Vancomycin Iv Per Pharmacy) 1 [facility] PRN PRN PRN Reason: PROTOCOL Stop: 08/30/16 12:44 Miscellaneous (Probiotic Screen) 1 [facility] PRN PRN PRN Reason: PROTOCOL Stop: 08/30/16 15:25 Morphine Sulfate (Morphine) 2 mg IVP Q4HR PRN PRN Reason: Pain (Severe) Stop: 08/30/16 06:06 Last Admin: 07/02/16 12:10 Dose: 2 mg Nifedipine (Procardia Xl) 60 mg PO DAILY [facility] Stop: 08/31/16 08:59 Last Admin: 07/02/16 08:39 Dose: 60 mg Ondansetron HCl (Zofran) 4 mg IV Q8H PRN PRN Reason: Nausea / Vomiting Stop: 08/30/16 06:10 Last Admin: 07/01/16 11:31 Dose: 4 mg Pantoprazole Sodium (Protonix) 40 mg IVP DAILY [facility] Stop: 08/31/16 08:59 Last Admin: 07/02/16 08:33 Dose: 40 mg Promethazine HCl/Dextromethorphan (Phenergan Dm 6.25/15mg-5 Ml) 5 ml PO Q6HR PRN PRN Reason: Cough Stop: 08/30/16 06:02 Sennosides (Senna Plus 50 Mg-8.6 Mg) 8.6 tab PO HS [facility] Stop: 08/30/16 20:59 Last Admin: 07/02/16 00:07 Dose: Not Given Valsartan (Diovan) 160 mg PO BID [facility] Stop: 08/30/16 08:59 Last Admin: 07/02/16 08:38 Dose: 160 mg Vitamin B Complex/Vit C/Folic Acid (Vitamin B Complex W/Vitamin C) 1 tab PO DAILY [facility] Stop: 08/30/16 08:59 Last Admin: 07/02/16 08:41 Dose: 1 tab General: weak HEENT: NC/AT, PERRLA Neck: Supple Lungs: ronchi Cardiovascular: RRR, Normal S1, without murmur Abdomen: soft non-tender, non-distended - Procedures Procedures: Procedures Procedure Code Date BLOOD TRANSFUSION SERVICE 09910 03/25/15 ESRD HOME PT SERV P DAY + 52574 07/19/15 HEMODIALYSIS 39.95 12/07/14 HEMODIALYSIS REPEATED EVAL 10595 03/25/15 INJECT/INFUSE NEC 99.29 10/13/14 PERFORMANCE OF URINARY FILTRATION, MULTIPLE [id number] 05/13/16 PERFORMANCE OF URINARY FILTRATION, SINGLE [id number] 05/23/16 TRANSFUSE NONAUT RED BLOOD CELLS IN PERIPH VEIN, PERC 08258K1 03/25/15 Internal Medicine Assmt/Plan - Assessment Assessment: RESPIRATORY FAILURE UNCONTROLLED DIABETES UNCONTROLLED HYPERTENSION ESRD ON HD CHF DM-2 NONCOMPLIANCE HYPERKALEMIA HYPONATREMIA - Plan Plan: VENT SUPPORT IVABX monitor i+o monitor lytes continue with dialysis
[2016-07-02] MEDS: D5-0.9%NS 1,000 ML IV SCH (12:50)
[2016-07-02 16:21] LABS: % BASOPHILS 0.4 % (0.0-2.0); % EOSINOPHILS 2.6 % (0.0-5.0); % LYMPHOCYTES 17.3 % (20.0-50.0); % MONOCYTES 11.4 % (2.0-10.0); % NEUTROPHILS 68.3 % (40.0-80.0); HEMATOCRIT 25.5 % (39.0-49.0); HEMOGLOBIN 8.8 gm/dL (13.2-17.3); MEAN CORPUSCULAR HEMOGLOBIN 30.6 pg (26.0-30.0); MEAN CORPUSCULAR HGB CONC 34.4 pg (28.0-36.0); MEAN PLATELET VOLUME 9.4 fl; NEUTROPHILE ABSOLUTE 3.1 Th/cmm (1.8-8.0); PLATELET COUNT 107 Th/cmm (150-400); RED BLOOD COUNT 2.87 Mil/cmm (4.30-5.70); WHITE BLOOD COUNT 4.5 Th/cmm (4.8-10.8)
[2016-07-02] MEDS: Ferrous Sulfate 325 MG TAB PO SCH (16:33)
--- NOTE | 2016-07-02 21:24 | Consultation ---
The patient is in ICU. HISTORY OF PRESENT ILLNESS: This 56-year-old male was seen and examined through the courtesy of Dr. Gregory. The patient was then admitted through the Emergency Room. Apparently, the patient was in acute respiratory failure. The patient was intubated, put on ventilator, and transferred to ICU. Some information was obtained from the chart. LABORATORY DATA: Her blood gases have revealed pH of 7.48, pCO2 of 33, and pO2 of 104. This is on ventilator. BNP was 2970. Elevated troponin level was 0.06. Hemoglobin A1c 10.1. Sodium was 123, potassium 5.7, chloride 89, and CO2 of 26, BUN 51, creatinine is 6.7, and glucose 879 on admission. Ketone serum moderate and phosphorus 6.1. Alkaline phosphatase 133. WBC of 5.7, hemoglobin 10, hematocrit 29.5, and platelet count of 113,000. INR was 1.04. PTT 28.1. Lactic acid 0.77. EKG shows sinus rhythm, possible LVH. ASSESSMENT: Acute respiratory failure, on vent; congestive heart failure, possibly on volume overload basis; rule out any cardiac insult; hyperkalemia; hyponatremia; severe hyperglycemia; diabetes; end-stage renal disease, on hemodialysis. Apparently according to history, the patient is noncompliant; hypertension, uncontrolled; hypothyroidism; and chronic obstructive pulmonary disease. The patient is on Tricor, hydralazine 100 mg q.8h., Synthroid 0.1 mg, minoxidil 2.5 b.i.d., Procardia-XL 30, Diovan 160 b.i.d., aspirin 81 mg daily, Lipitor 20 mg daily, Coreg 6.25 b.i.d., Catapres 0.2 t.i.d. Blood pressure is still little high. I will increase Procardia-XL to 60. Also, suggest to get serial troponin levels, serial EKGs, echocardiogram to evaluate left ventricular function and valvular structure. DVT prophylaxis. Further recommendation will be made depending on the result is available. However, Dr. Lorena Yarbrough will be following the patient from this morning. JOB# [id number]
[2016-07-02] MEDS: Atorvastatin Calcium 10 MG TAB PO SCH (21:38)
[2016-07-02] MEDS: Fenofibrate, Micronized 134 mg Cap PO SCH (21:39)
[2016-07-02] MEDS: Epoetin Alfa 20000 Units/mL Vial SUBQ SCH (23:20)
[2016-07-03] MEDS ORDERED: Heparin Sod 1,000 Units/mL 10ml HD ONE
[2016-07-03] MEDS: Docusate Sodium/Senna Tab PO SCH ×2 (01:38→23:53)
[2016-07-03] MEDS: Chlorhexidine Gluconate 0.12% 480mL Bottle MM SCH ×3 (01:39→16:51)
[2016-07-03 05:02] LABS: % BASOPHILS 0.4 % (0.0-2.0); % MONOCYTES 12.3 % (2.0-10.0)
[2016-07-03 05:10] LABS: % EOSINOPHILS 3.8 % (0.0-5.0); % LYMPHOCYTES 13.5 % (20.0-50.0); HEMATOCRIT 25.7 % (39.0-49.0); HEMOGLOBIN 8.7 gm/dL (13.2-17.3); MEAN CORPUSCULAR HEMOGLOBIN 30.2 pg (26.0-30.0); MEAN CORPUSCULAR HGB CONC 33.9 pg (28.0-36.0); MEAN PLATELET VOLUME 9.1 fl; NEUTROPHILE ABSOLUTE 3.5 Th/cmm (1.8-8.0); PLATELET COUNT 106 Th/cmm (150-400); RED BLOOD COUNT 2.89 Mil/cmm (4.30-5.70); RED CELL DISTRIBUTION WIDTH 13.2 % (11.5-20.0)
[2016-07-03 05:34] LABS: ALB/GLOB RATIO 1.3 (1.0-1.8); ANION GAP 12.1 (7.0-16.0); BILIRUBIN,TOTAL 0.4 mg/dL (0.3-1.0); BUN/CREATININE RATIO 5.9; CALCIUM SERUM 9.3 mg/dL (8.6-10.3); CARBON DIOXIDE 25.7 mEq/L (21.0-31.0); POTASSIUM SERUM 3.8 mEq/L (3.5-5.1)
[2016-07-03 05:45] LABS: CREATININE - SERUM 6.9 mg/dL (0.7-1.3); VANCOMYCIN RANDOM 26.5 ug/mL (5.0-40.0)
[2016-07-03] MEDS: Levothyroxine 0.1 Mg Tab PO SCH (06:32)
[2016-07-03] MEDS: Albuterol Nebulizer 2.5mg/3mL HHN SCH ×4 (07:06→19:20)
[2016-07-03] MEDS: Ipratropium Neb 0.5 mg/2.5 mL UD HHN SCH ×4 (07:07→19:20)
[2016-07-03] MEDS: INSULIN ASPART, RECOMBINANT 100 UNITS/ML SUBQ SCH ×5 (07:30→21:53)
[2016-07-03] MEDS: NIFEdipine 30 mg ER Tab PO SCH (09:00)
[2016-07-03] MEDS: Aspirin 81mg Chewable Tab PO SCH (09:19)
[2016-07-03] MEDS: Lactobacillus Rhamnosus 10 Billion CFU Capsule PO SCH (09:21)
[2016-07-03] MEDS: Vitamin B Complex w/Vitamin C Tab PO SCH (09:21)
[2016-07-03 10:26] LABS: ABG SOURCE Arterial; BE(B) 2.3 mmol/L (-3.0-3.0); FIO2 35; HCO3 27.3 mmol/L (20.0-26.0); MECH RATE 16; MECH VT 500; PS 10; pH 7.41 (7.35-7.45)
[2016-07-03 10:27] LABS: CRITICAL VALUES REPORTED BY PW
[2016-07-03] MEDS: Morphine Sulfate 2 mg/mL 1mL Syr IVP PRN ×3 (11:09→21:51)
--- NOTE | 2016-07-03 11:41 | Diagnostic Imaging Report ---
Portable chest x-ray HISTORY: Shortness of breath Compared with prior exam of July 01, 2016, the heart is enlarged. Slight haziness of the interstitial lung markings. Degree of congestive heart failure cannot be excluded. Clinical correlation is needed. No definite focal processes. An endotracheal tube tip is approximately 2.5 cm above the trent. IMPRESSION: 1. Cardiomegaly with slight accentuation of the interstitial lung markings a degree of congestive heart failure cannot be excluded. Clinical correlation is needed. 2. No focal pulmonary processes
--- NOTE | 2016-07-03 11:54 | Internal Medicine Prog Note ---
Internal Medicine Subjective - Subjective Service Date: 07/03/16 (PATIENT CURRENTLY ON SIMV MODE TOLERATING WELL, PER PATIENT HE STATES THAT HE FEEL WHEN HE WAS AT HOME LANDED ON HIS LEFT KNEE AND RIGHT HIP. C/O PAIN, UNDERGOING DIALYSIS AT THIS TIME. ) Patient seen and examined:: with staff Patient is:: awake Internal Medicine Objective - Results Result Diagrams: 07/03/16 04:39 07/03/16 04:39 Recent Labs: Laboratory Last Values WBC 5.0 Th/cmm (4.8-10.8) 07/03/16 04:39 RBC 2.89 Mil/cmm (4.30-5.70) L 07/03/16 04:39 Hgb 8.7 gm/dL (13.2-17.3) L 07/03/16 04:39 Hct 25.7 % (39.0-49.0) L 07/03/16 04:39 MCV 89.0 fl (80-99) 07/03/16 04:39 MCH 30.2 pg (26.0-30.0) H 07/03/16 04:39 MCHC Differential 33.9 pg (28.0-36.0) 07/03/16 04:39 RDW 13.2 % (11.5-20.0) 07/03/16 04:39 Plt Count 106 Th/cmm (150-400) L 07/03/16 04:39 MPV 9.1 fl 07/03/16 04:39 Neutrophils % 70.0 % (40.0-80.0) 07/03/16 04:39 Lymphocytes % 13.5 % (20.0-50.0) L 07/03/16 04:39 Monocytes % 12.3 % (2.0-10.0) H 07/03/16 04:39 Eosinophils % 3.8 % (0.0-5.0) 07/03/16 04:39 Basophils % 0.4 % (0.0-2.0) 07/03/16 04:39 PT 10.3 SECONDS (9.5-11.5) 07/01/16 03:12 INR 1.04 (0.5-1.4) 07/01/16 03:12 PTT (Actin FS) 28.1 SECONDS (26.0-38.0) 07/01/16 03:12 Specimen Source Arterial 07/03/16 10:10 Sample Site RB 07/03/16 10:10 pH 7.41 (7.35-7.45) 07/03/16 10:10 pCO2 43.0 mmHg (35.0-45.0) 07/03/16 10:10 pO2 90.0 mmHg (80.0-100.0) 07/03/16 10:10 HCO3 27.3 mmol/L (20.0-26.0) H 07/03/16 10:10 Base Excess 2.3 mmol/L (-3.0-3.0) 07/03/16 10:10 O2 Saturation 97.0 % (92.0-100.0) 07/03/16 10:10 Gerry Test NA 07/01/16 12:40 Vent Rate 16 07/03/16 10:10 Inspired O2 35 07/03/16 10:10 Tidal Volume 500 07/03/16 10:10 PEEP 5 07/03/16 10:10 Pressure (ins/psv/peep) 10 07/03/16 10:10 Critical Value PW 07/03/16 10:10 Sodium 141 mEq/L (136-145) 07/03/16 04:39 Potassium 3.8 mEq/L (3.5-5.1) 07/03/16 04:39 Chloride 107 mEq/L (98-107) 07/03/16 04:39 Carbon Dioxide 25.7 mEq/L (21.0-31.0) 07/03/16 04:39 Anion Gap 12.1 (7.0-16.0) 07/03/16 04:39 BUN 41 mg/dL (7-25) H 07/03/16 04:39 Creatinine 6.9 mg/dL (0.7-1.3) H* 07/03/16 04:39 Est GFR ( Amer) 10.8 ml/min (>90) 07/03/16 04:39 Est GFR (Non-Af Amer) 8.9 ml/min 07/03/16 04:39 BUN/Creatinine Ratio 5.9 07/03/16 04:39 Glucose 137 mg/dL (70-105) H 07/03/16 04:39 POC Glucose 174 MG/DL (70 - 105) H 07/03/16 06:38 Hemoglobin A1c % 10.1 % (4.0-6.0) H 07/01/16 03:12 Plasma/Ser Osmolality 332 mOsmol/kg (275-295) H 07/01/16 03:12 Whole Bld Lactic Acid 0.77 mmol/L (0.60-2.00) 07/01/16 03:12 Calcium 9.3 mg/dL (8.6-10.3) 07/03/16 04:39 Phosphorus 6.1 mg/dL (2.5-5.0) H 07/01/16 03:12 Magnesium 2.0 mg/dL (1.9-2.7) 07/02/16 07:50 Total Bilirubin 0.4 mg/dL (0.3-1.0) 07/03/16 04:39 AST 55 U/L (13-39) H 07/03/16 04:39 ALT 48 U/L (7-52) 07/03/16 04:39 Alkaline Phosphatase 67 U/L (34-104) 07/03/16 04:39 Ammonia 37 umol/L (16-53) 07/02/16 07:50 Troponin I 0.09 ng/mL (0.01-0.05) H* 07/02/16 16:00 B-Natriuretic Peptide 1480.0 pg/mL (5.0-100.0) H 07/03/16 04:39 Total Protein 6.1 gm/dL (6.0-8.3) 07/03/16 04:39 Albumin 3.4 gm/dL (4.2-5.5) L 07/03/16 04:39 Globulin 2.7 gm/dL 07/03/16 04:39 Albumin/Globulin Ratio 1.3 (1.0-1.8) 07/03/16 04:39 Lipase 20 U/L (11-82) 07/01/16 03:12 Random Vancomycin 26.5 ug/mL (5.0-40.0) 07/03/16 04:39 Serum Ketones MODERATE (NEGATIVE) H 07/01/16 03:12 - Physical Exam Vitals and I&O: Vital Signs Temp 99.1 F 07/03/16 08:00 Pulse 86 07/03/16 11:36 Resp 13 07/03/16 10:00 BP 145/65 07/03/16 10:00 Pulse Ox 99 07/03/16 11:36 Intake & Output 07/02/16 07/03/16 07/03/16 18:59 06:59 18:59 Intake Total 1500 150 Output Total 350 0 0 Balance 1150 150 0 Weight (lbs) 149 lb Intake: Intake, IV Amount 1050 50 Cefepime 0.5 gm In 50 50 Dextrose 5% 50 ml @ 100 mls/hr IV Q12HR@0000,1200 [facility] Rx#:[id number] D5-0.9%Ns 1,000 ml @ 50 1000 mls/hr IV .Q20H [facility] Rx#: [id number] Oral 0 Other 450 100 Output: Gastric Drainage 350 Urine 0 0 0 Stool 0 Other: # Voids 0 # Bowel Movements 0 0 0 Active Medications: Current Medications Acetaminophen (Tylenol) 650 mg PO Q4HR PRN PRN Reason: Pain (Mild) Stop: 08/30/16 06:02 Albuterol Sulfate (Albuterol 2.5mg/3ml Neb Ud) 2.5 mg HHN QIDRT [facility] Stop: 08/30/16 08:59 Last Admin: 07/03/16 11:36 Dose: 2.5 mg Aspirin (Aspirin Chewable) 81 mg PO DAILY [facility] Stop: 08/30/16 08:59 Last Admin: 07/03/16 09:19 Dose: 81 mg Atorvastatin Calcium (Lipitor) 20 mg PO HS [facility] PRN Reason: Protocol Stop: 08/30/16 20:59 Last Admin: 07/02/16 21:38 Dose: 20 mg Calcium Acetate (Phoslo) 667 mg PO TID [facility] Stop: 08/30/16 08:59 Last Admin: 07/03/16 09:19 Dose: 667 mg Carvedilol (Coreg) 12.5 mg PO BID [facility] Stop: 08/30/16 23:30 Last Admin: 07/03/16 09:00 Dose: Not Given Chlorhexidine Gluconate (Peridex) 15 ml MM BID [facility] Stop: 08/31/16 21:44 Last Admin: 07/03/16 09:19 Dose: 15 ml Cholecalciferol (Vitamin D3) 5,000 iu PO DAILY [facility] Stop: 08/30/16 08:59 Last Admin: 07/03/16 09:20 Dose: 5,000 iu Clonidine HCl (Catapres) 0.2 mg PO TID [facility] Stop: 08/30/16 08:59 Last Admin: 07/03/16 09:00 Dose: Not Given Clonidine HCl (Catapres) 0.1 mg PO Q6HR PRN PRN Reason: sbp 170 mmhg and up Stop: 08/31/16 01:25 Last Admin: 07/02/16 01:49 Dose: 0.1 mg Diltiazem HCl (Cardizem) 20 mg IVP Q4H PRN PRN Reason: HR Greater than 130 per min Stop: 08/30/16 06:06 Docusate Sodium (Colace) 100 mg PO BID [facility] Stop: 08/30/16 08:59 Last Admin: 07/03/16 09:20 Dose: Not Given Enalaprilat (Vasotec) 1.25 mg IVP Q6HR PRN PRN Reason: SBP 170 mmhg and above Stop: 08/31/16 05:59 Last Admin: 07/02/16 06:06 Dose: 1.25 mg Epoetin Nate (Epogen) 5,000 units SUBQ MoWeFr [facility] Stop: 08/31/16 06:02 Last Admin: 07/02/16 23:20 Dose: Not Given Fenofibrate (Tricor) 134 mg PO HS [facility] Stop: 08/30/16 20:59 Last Admin: 07/02/16 21:39 Dose: 134 mg Ferrous Sulfate (Iron) 325 mg PO QPM 1700 [facility] Stop: 08/30/16 16:59 Last Admin: 07/02/16 16:33 Dose: 325 mg Folic Acid (Folate) 1 mg PO DAILY [facility] Stop: 08/30/16 08:59 Last Admin: 07/03/16 09:20 Dose: 1 mg Heparin Sodium (Porcine) (Heparin) 5,000 units SUBQ Q8H [facility] Stop: 08/31/16 08:59 Last Admin: 07/03/16 09:24 Dose: 5,000 units Hydralazine HCl (Apresoline) 100 mg PO Q8HR [facility] Stop: 08/30/16 12:59 Last Admin: 07/03/16 05:12 Dose: 100 mg Cefepime HCl 0.5 gm/ Dextrose 50 mls @ 100 mls/hr IV Q12HR@0000,1200 [facility] Stop: 08/30/16 11:59 Last Infusion: 07/02/16 23:49 Dose: Infused Dextrose/Sodium Chloride (D5-0.9%Ns) 1,000 mls @ 50 mls/hr IV .Q20H [facility] Stop: 08/30/16 15:59 Last Admin: 07/02/16 12:50 Dose: 50 mls/hr Vancomycin HCl 1 gm/ Sodium (Chloride) 250 mls @ 165 mls/hr IV ONCE ONE Stop: 07/03/16 23:30 Insulin Aspart (Novolog) 0 units SUBQ ACHS [facility] PRN Reason: Protocol Stop: 08/30/16 07:29 Last Admin: 07/02/16 16:32 Dose: Not Given Ipratropium [place] (Atrovent Neb 0.5mg/2.5ml) 0.5 mg HHN QIDRT [facility] Stop: 08/30/16 11:01 Last Admin: 07/03/16 11:35 Dose: 0.5 mg Lactobacillus Rhamnosus (Culturelle) 1 each PO DAILY [facility] Stop: 08/31/16 08:59 Last Admin: 07/03/16 09:21 Dose: 1 each Levothyroxine Sodium (Synthroid) 0.1 mg PO QDAC [facility] Stop: 08/30/16 07:29 Last Admin: 07/03/16 06:32 Dose: 0.1 mg Lorazepam (Ativan) 1 mg IV Q4HR PRN; Protocol PRN Reason: Seizure Stop: 08/30/16 06:06 Last Admin: 07/02/16 15:30 Dose: 1 mg Minoxidil (Loniten) 2.5 mg PO BID [facility] Stop: 08/30/16 08:59 Last Admin: 07/03/16 09:00 Dose: Not Given Miscellaneous (Vancomycin Iv Per Pharmacy) 1 [facility] PRN PRN PRN Reason: PROTOCOL Stop: 08/30/16 12:44 Miscellaneous (Probiotic Screen) 1 [facility] PRN PRN PRN Reason: PROTOCOL Stop: 08/30/16 15:25 Morphine Sulfate (Morphine) 2 mg IVP Q4HR PRN PRN Reason: Pain (Severe) Stop: 08/30/16 06:06 Last Admin: 07/03/16 11:09 Dose: 2 mg Nifedipine (Procardia Xl) 60 mg PO DAILY [facility] Stop: 08/31/16 08:59 Last Admin: 07/03/16 09:00 Dose: Not Given Ondansetron HCl (Zofran) 4 mg IV Q8H PRN PRN Reason: Nausea / Vomiting Stop: 08/30/16 06:10 Last Admin: 07/01/16 11:31 Dose: 4 mg Pantoprazole Sodium (Protonix) 40 mg IVP DAILY [facility] Stop: 08/31/16 08:59 Last Admin: 07/03/16 09:21 Dose: 40 mg Promethazine HCl/Dextromethorphan (Phenergan Dm 6.25/15mg-5 Ml) 5 ml PO Q6HR PRN PRN Reason: Cough Stop: 08/30/16 06:02 Sennosides (Senna Plus 50 Mg-8.6 Mg) 8.6 tab PO HS [facility] Stop: 08/30/16 20:59 Last Admin: 07/03/16 01:38 Dose: Not Given Valsartan (Diovan) 160 mg PO BID [facility] Stop: 08/30/16 08:59 Last Admin: 07/03/16 09:00 Dose: Not Given Vitamin B Complex/Vit C/Folic Acid (Vitamin B Complex W/Vitamin C) 1 tab PO DAILY [facility] Stop: 08/30/16 08:59 Last Admin: 07/03/16 09:21 Dose: 1 tab General: alert HEENT: NC/AT Neck: Supple Lungs: CTAB - Procedures Procedures: Procedures Procedure Code Date BLOOD TRANSFUSION SERVICE 74190 03/25/15 ESRD HOME PT SERV P DAY + 30130 07/19/15 HEMODIALYSIS 39.95 12/07/14 HEMODIALYSIS REPEATED EVAL 78031 03/25/15 INJECT/INFUSE NEC 99.29 10/13/14 INSERT EMERGENCY AIRWAY 93840 07/01/16 INSERTION OF ENDOTRACHEAL AIRWAY INTO TRACHEA, VIA OPENING [id number] 07/01/16 PERFORMANCE OF URINARY FILTRATION, MULTIPLE [id number] 05/13/16 PERFORMANCE OF URINARY FILTRATION, SINGLE [id number] 05/23/16 RESPIRATORY VENTILATION, 24-96 CONSECUTIVE HOURS [id number] 07/01/16 TRANSFUSE NONAUT RED BLOOD CELLS IN PERIPH VEIN, PERC [id number] 03/25/15 VENT MGMT INPAT INIT DAY 13205 07/01/16 VENT MGMT INPAT SUBQ DAY 70762 07/01/16 Internal Medicine Assmt/Plan - Assessment Assessment: RESPIRATORY FAILURE UNCONTROLLED DIABETES UNCONTROLLED HYPERTENSION ESRD ON HD CHF DM-2 NONCOMPLIANCE HYPERKALEMIA HYPONATREMIA - Plan Plan: xray of right hip, left knee today VENT SUPPORT, continue to wean as tolerated IVABX monitor i+o monitor lytes continue with dialysis
[2016-07-03] MEDS: D5-0.9%NS 1,000 ML IV SCH (13:00)
--- NOTE | 2016-07-03 16:11 | Diagnostic Imaging Report ---
Pelvis (single view) HISTORY: Pain, trauma No definite acute bony abnormalities. No fractures are seen. Hip joints appear normal. Extensive atherosclerotic vascular calcification noted. IMPRESSION: 1. No acute bony abnormalities 2. Extensive atherosclerotic vascular changes
--- NOTE | 2016-07-03 16:12 | Diagnostic Imaging Report ---
Right hip (2 views) HISTORY: Pain, trauma Joint space appears normal. The femoral head exhibits a normal contour. No focal lesions. No fractures. Severe extensive atherosclerotic vascular calcification is noted. IMPRESSION: 1. No acute bony abnormalities 2. Severe atherosclerotic vascular changes
--- NOTE | 2016-07-03 16:13 | Diagnostic Imaging Report ---
Left knee (2 views) HISTORY: Pain No focal lesions. No fractures. Joint spaces are normal. Extensive vascular calcification noted. IMPRESSION: 1. No acute bony abnormalities 2. Severe extensive atherosclerotic vascular changes
[2016-07-03] MEDS: Ferrous Sulfate 325 MG TAB PO SCH (16:52)
[2016-07-03] MEDS: Epoetin Alfa 20000 Units/mL Vial SUBQ SCH (18:11)
[2016-07-03] MEDS: Fenofibrate, Micronized 134 mg Cap PO SCH (21:06)
[2016-07-03] MEDS: Atorvastatin Calcium 10 MG TAB PO SCH (21:07)
[2016-07-04] MEDS: Morphine Sulfate 2 mg/mL 1mL Syr IVP PRN ×4 (02:32→18:50)
[2016-07-04 04:52] LABS: % BASOPHILS 0.3 % (0.0-2.0); % EOSINOPHILS 3.4 % (0.0-5.0); % LYMPHOCYTES 9.2 % (20.0-50.0); % MONOCYTES 9.6 % (2.0-10.0); % NEUTROPHILS 77.5 % (40.0-80.0); HEMATOCRIT 26.4 % (39.0-49.0); MEAN CELL VOLUME 89.1 fl (80-99); MEAN CORPUSCULAR HEMOGLOBIN 30.4 pg (26.0-30.0); MEAN CORPUSCULAR HGB CONC 34.1 pg (28.0-36.0); MEAN PLATELET VOLUME 8.9 fl; NEUTROPHILE ABSOLUTE 5.2 Th/cmm (1.8-8.0); PLATELET COUNT 111 Th/cmm (150-400); RED BLOOD COUNT 2.97 Mil/cmm (4.30-5.70)
[2016-07-04 04:55] LABS: WHITE BLOOD COUNT 6.6 Th/cmm (4.8-10.8)
[2016-07-04 05:17] LABS: ANION GAP 11.9 (7.0-16.0); BUN/CREATININE RATIO 4.3; CARBON DIOXIDE 28.5 mEq/L (21.0-31.0); POTASSIUM SERUM 4.4 mEq/L (3.5-5.1)
[2016-07-04 05:38] LABS: CREATININE - SERUM 5.6 mg/dL (0.7-1.3)
[2016-07-04] MEDS: Albuterol Nebulizer 2.5mg/3mL HHN SCH ×4 (06:58→19:35)
[2016-07-04] MEDS: Ipratropium Neb 0.5 mg/2.5 mL UD HHN SCH ×4 (06:58→19:34)
[2016-07-04] MEDS: Levothyroxine 0.1 Mg Tab PO SCH (07:13)
[2016-07-04] MEDS: INSULIN ASPART, RECOMBINANT 100 UNITS/ML SUBQ SCH ×4 (07:14→21:18)
[2016-07-04] MEDS: NIFEdipine 30 mg ER Tab PO SCH (09:25)
[2016-07-04] MEDS: Lactobacillus Rhamnosus 10 Billion CFU Capsule PO SCH (09:27)
[2016-07-04] MEDS: Aspirin 81mg Chewable Tab PO SCH (09:30)
[2016-07-04] MEDS: Vitamin B Complex w/Vitamin C Tab PO SCH (09:30)
--- NOTE | 2016-07-04 09:39 | Consultation ---
RENAL CONSULTATION REQUESTING PHYSICIAN: Dr. Singh. HISTORY OF PRESENT ILLNESS: The patient is a 56-year-old gentleman with history of ESRD, getting dialysis at [facility], [place], [place] under the care of my associate, Dr. Lebron every Mondays, Wednesdays, and Saturday. The patient presented to the Emergency Room with shortness of breath, found to be in pulmonary edema, required intubation because of low oxygenation. The patient was urgently dialyzed and 4.4 liters fluid removed with the patient tolerated very well. He was hypertensive at the beginning, but now his blood pressure is under control. The patient was also noted to have hyperglycemia for which he received insulin and being followed by a primary Dr. Gregory. REVIEW OF SYSTEMS: Not available as patient is intubated, on ventilator. He is awake, alert, and responsive, though. PAST MEDICAL HISTORY: Includes type 2 diabetes mellitus, hypertension, hyperlipidemia, ESRD, dialysis status. Noncompliance with salt and fluid restriction. The patient's medications and labs reviewed. Discussed with the patient's RN on the floor. PHYSICAL EXAMINATION: GENERAL: Middle-aged male, pleasant, looks pale and chronically ill, on ventilator. He is afebrile. VITAL SIGNS: Blood pressure 128/70. HEENT: Head is atraumatic. Conjunctivae pale. Sclerae are nonicteric. Ears and nose unremarkable. NECK: No goiter. CHEST: Expansion of the chest equal. CARDIOVASCULAR: Sinus tachycardia. LUNGS: Diminished breath sounds at bases. ABDOMEN: Soft, gut sounds present. EXTREMITIES: No edema. CARBIDE OPERATOR: Unremarkable. ASSESSMENT AND PLAN: 1. End-stage renal disease secondary to diabetic nephropathy and hypertension, nephrosclerosis, with fluid overload and pulmonary edema. Aggressive dialysis was performed. The patient gets dialyzed every Mondays and Fridays. He seems to be euvolemic at this time. We will be planning for dialysis tomorrow. Routine labs. 2. Respiratory failure secondary to congestive heart failure and fluid overload, on ventilator. 3. Anemia and coronary artery disease. 4. Hypertension. 5. Type 2 diabetes mellitus. The patient needs to be monitored very closely. Thanks a lot Dr. Singh for asking us to see the patient during his stay in the hospital. JOB# [id number]
--- NOTE | 2016-07-04 12:25 | Internal Medicine Prog Note ---
Internal Medicine Subjective - Subjective Service Date: 07/04/16 (patient extubated yesterday, awake, alert, denies any sob on o2 2L VIA n/c, tolerating well. left hand noted with +3 non pitting edema. ) Patient seen and examined:: with staff Patient is:: awake Internal Medicine Objective - Results Result Diagrams: 07/04/16 04:39 07/04/16 04:39 Recent Labs: Laboratory Last Values WBC 6.6 Th/cmm (4.8-10.8) D 07/04/16 04:39 RBC 2.97 Mil/cmm (4.30-5.70) L 07/04/16 04:39 Hgb 9.0 gm/dL (13.2-17.3) L 07/04/16 04:39 Hct 26.4 % (39.0-49.0) L 07/04/16 04:39 MCV 89.1 fl (80-99) 07/04/16 04:39 MCH 30.4 pg (26.0-30.0) H 07/04/16 04:39 MCHC Differential 34.1 pg (28.0-36.0) 07/04/16 04:39 RDW 13.0 % (11.5-20.0) 07/04/16 04:39 Plt Count 111 Th/cmm (150-400) L 07/04/16 04:39 MPV 8.9 fl 07/04/16 04:39 Neutrophils % 77.5 % (40.0-80.0) 07/04/16 04:39 Lymphocytes % 9.2 % (20.0-50.0) L 07/04/16 04:39 Monocytes % 9.6 % (2.0-10.0) 07/04/16 04:39 Eosinophils % 3.4 % (0.0-5.0) 07/04/16 04:39 Basophils % 0.3 % (0.0-2.0) 07/04/16 04:39 PT 10.3 SECONDS (9.5-11.5) 07/01/16 03:12 INR 1.04 (0.5-1.4) 07/01/16 03:12 PTT (Actin FS) 28.1 SECONDS (26.0-38.0) 07/01/16 03:12 Specimen Source Arterial 07/03/16 10:10 Sample Site RB 07/03/16 10:10 pH 7.41 (7.35-7.45) 07/03/16 10:10 pCO2 43.0 mmHg (35.0-45.0) 07/03/16 10:10 pO2 90.0 mmHg (80.0-100.0) 07/03/16 10:10 HCO3 27.3 mmol/L (20.0-26.0) H 07/03/16 10:10 Base Excess 2.3 mmol/L (-3.0-3.0) 07/03/16 10:10 O2 Saturation 97.0 % (92.0-100.0) 07/03/16 10:10 Gerry Test NA 07/01/16 12:40 Vent Rate 16 07/03/16 10:10 Inspired O2 35 07/03/16 10:10 Tidal Volume 500 07/03/16 10:10 PEEP 5 07/03/16 10:10 Pressure (ins/psv/peep) 10 07/03/16 10:10 Critical Value PW 07/03/16 10:10 Sodium 135 mEq/L (136-145) L 07/04/16 04:39 Potassium 4.4 mEq/L (3.5-5.1) 07/04/16 04:39 Chloride 99 mEq/L (98-107) 07/04/16 04:39 Carbon Dioxide 28.5 mEq/L (21.0-31.0) 07/04/16 04:39 Anion Gap 11.9 (7.0-16.0) 07/04/16 04:39 BUN 24 mg/dL (7-25) 07/04/16 04:39 Creatinine 5.6 mg/dL (0.7-1.3) H* 07/04/16 04:39 Est GFR ( Amer) 13.7 ml/min (>90) 07/04/16 04:39 Est GFR (Non-Af Amer) 11.3 ml/min 07/04/16 04:39 BUN/Creatinine Ratio 4.3 07/04/16 04:39 Glucose 290 mg/dL (70-105) H 07/04/16 04:39 POC Glucose 312 MG/DL (70 - 105) H 07/04/16 11:47 Hemoglobin A1c % 10.1 % (4.0-6.0) H 07/01/16 03:12 Plasma/Ser Osmolality 332 mOsmol/kg (275-295) H 07/01/16 03:12 Whole Bld Lactic Acid 0.77 mmol/L (0.60-2.00) 07/01/16 03:12 Calcium 9.0 mg/dL (8.6-10.3) 07/04/16 04:39 Phosphorus 6.1 mg/dL (2.5-5.0) H 07/01/16 03:12 Magnesium 2.0 mg/dL (1.9-2.7) 07/02/16 07:50 Total Bilirubin 0.4 mg/dL (0.3-1.0) 07/03/16 04:39 AST 55 U/L (13-39) H 07/03/16 04:39 ALT 48 U/L (7-52) 07/03/16 04:39 Alkaline Phosphatase 67 U/L (34-104) 07/03/16 04:39 Ammonia 37 umol/L (16-53) 07/02/16 07:50 Troponin I 0.09 ng/mL (0.01-0.05) H* 07/02/16 16:00 B-Natriuretic Peptide 1480.0 pg/mL (5.0-100.0) H 07/03/16 04:39 Total Protein 6.1 gm/dL (6.0-8.3) 07/03/16 04:39 Albumin 3.4 gm/dL (4.2-5.5) L 07/03/16 04:39 Globulin 2.7 gm/dL 07/03/16 04:39 Albumin/Globulin Ratio 1.3 (1.0-1.8) 07/03/16 04:39 Lipase 20 U/L (11-82) 07/01/16 03:12 Random Vancomycin 26.5 ug/mL (5.0-40.0) 07/03/16 04:39 Serum Ketones MODERATE (NEGATIVE) H 07/01/16 03:12 - Physical Exam Vitals and I&O: Vital Signs Temp 98.7 F 07/04/16 04:00 Pulse 77 07/04/16 11:58 Resp 14 07/04/16 11:35 BP 176/83 07/04/16 09:29 Pulse Ox 99 07/04/16 11:35 Intake & Output 07/03/16 07/04/16 07/04/16 18:59 06:59 18:59 Intake Total 1050 400 Output Total 0 3000 Balance 1050 -2600 Weight (lbs) 148 lb Intake: Intake, IV Amount 1050 50 Cefepime 0.5 gm In 50 50 Dextrose 5% 50 ml @ 100 mls/hr IV Q12HR@0000,1200 [facility] Rx#:[id number] D5-0.9%Ns 1,000 ml @ 50 1000 mls/hr IV .Q20H [facility] Rx#: [id number] Oral 200 Other 150 Output: Urine 0 0 Stool 0 Hemodialysis 3000 Other: # Bowel Movements 0 0 Active Medications: Current Medications Acetaminophen (Tylenol) 650 mg PO Q4HR PRN PRN Reason: Pain (Mild) Stop: 08/30/16 06:02 Albuterol Sulfate (Albuterol 2.5mg/3ml Neb Ud) 2.5 mg HHN QIDRT [facility] Stop: 08/30/16 08:59 Last Admin: 07/04/16 11:38 Dose: 2.5 mg Aspirin (Aspirin Chewable) 81 mg PO DAILY [facility] Stop: 08/30/16 08:59 Last Admin: 07/04/16 09:30 Dose: 81 mg Atorvastatin Calcium (Lipitor) 20 mg PO HS [facility]CE PRN Reason: Protocol Stop: 08/30/16 20:59 Last Admin: 07/03/16 21:07 Dose: 20 mg Calcium Acetate (Phoslo) 667 mg PO TID [facility] Stop: 08/30/16 08:59 Last Admin: 07/04/16 09:27 Dose: 667 mg Carvedilol (Coreg) 12.5 mg PO BID [facility] Stop: 08/30/16 23:30 Last Admin: 07/04/16 09:29 Dose: 12.5 mg Cholecalciferol (Vitamin D3) 5,000 iu PO DAILY [facility] Stop: 08/30/16 08:59 Last Admin: 07/04/16 09:26 Dose: 5,000 iu Clonidine HCl (Catapres) 0.2 mg PO TID [facility] Stop: 08/30/16 08:59 Last Admin: 07/04/16 09:30 Dose: 0.2 mg Clonidine HCl (Catapres) 0.1 mg PO Q6HR PRN PRN Reason: sbp 170 mmhg and up Stop: 08/31/16 01:25 Last Admin: 07/04/16 11:58 Dose: 0.1 mg Diltiazem HCl (Cardizem) 20 mg IVP Q4H PRN PRN Reason: HR Greater than 130 per min Stop: 08/30/16 06:06 Docusate Sodium (Colace) 100 mg PO BID [facility] Stop: 08/30/16 08:59 Last Admin: 07/04/16 09:27 Dose: 100 mg Enalaprilat (Vasotec) 1.25 mg IVP Q6HR PRN PRN Reason: SBP 170 mmhg and above Stop: 08/31/16 05:59 Last Admin: 07/02/16 06:06 Dose: 1.25 mg Epoetin Nate (Epogen) 5,000 units SUBQ MoWeFr [facility] Stop: 08/31/16 06:02 Last Admin: 07/03/16 18:11 Dose: 5,000 units Fenofibrate (Tricor) 134 mg PO HS [facility] Stop: 08/30/16 20:59 Last Admin: 07/03/16 21:06 Dose: 134 mg Ferrous Sulfate (Iron) 325 mg PO QPM 1700 [facility] Stop: 08/30/16 16:59 Last Admin: 07/03/16 16:52 Dose: 325 mg Folic Acid (Folate) 1 mg PO DAILY [facility] Stop: 08/30/16 08:59 Last Admin: 07/04/16 09:27 Dose: 1 mg Heparin Sodium (Porcine) (Heparin) 5,000 units SUBQ Q8H [facility] Stop: 08/31/16 08:59 Last Admin: 07/04/16 09:40 Dose: 5,000 units Hydralazine HCl (Apresoline) 100 mg PO Q8HR [facility] Stop: 08/30/16 12:59 Last Admin: 07/04/16 05:26 Dose: 100 mg Cefepime HCl 0.5 gm/ Dextrose 50 mls @ 100 mls/hr IV Q12HR@0000,1200 [facility] Stop: 08/30/16 11:59 Last Admin: 07/04/16 11:45 Dose: 100 mls/hr Dextrose/Sodium Chloride (D5-0.9%Ns) 1,000 mls @ 50 mls/hr IV .Q20H [facility] Stop: 08/30/16 15:59 Last Admin: 07/03/16 13:00 Dose: 50 mls/hr Insulin Aspart (Novolog) 0 units SUBQ ACHS [facility] PRN Reason: Protocol Stop: 08/30/16 07:29 Last Admin: 07/04/16 11:51 Dose: 6 units Ipratropium [place] (Atrovent Neb 0.5mg/2.5ml) 0.5 mg HHN QIDRT [facility] Stop: 08/30/16 11:01 Last Admin: 07/04/16 11:38 Dose: 0.5 mg Lactobacillus Rhamnosus (Culturelle) 1 each PO DAILY [facility] Stop: 08/31/16 08:59 Last Admin: 07/04/16 09:27 Dose: 1 each Levothyroxine Sodium (Synthroid) 0.1 mg PO QDAC [facility] Stop: 08/30/16 07:29 Last Admin: 07/04/16 07:13 Dose: 0.1 mg Lorazepam (Ativan) 1 mg IV Q4HR PRN; Protocol PRN Reason: Seizure Stop: 08/30/16 06:06 Last Admin: 07/02/16 15:30 Dose: 1 mg Minoxidil (Loniten) 2.5 mg PO BID [facility] Stop: 08/30/16 08:59 Last Admin: 07/04/16 09:27 Dose: 2.5 mg Miscellaneous (Vancomycin Iv Per Pharmacy) 1 ea PRN PRN PRN Reason: PROTOCOL Stop: 08/30/16 12:44 Miscellaneous (Probiotic Screen) 1 ea PRN PRN PRN Reason: PROTOCOL Stop: 08/30/16 15:25 Miscellaneous (Clinical Monitoring) 1 ea PRN PRN PRN Reason: RENAL DOSING Stop: 09/02/16 07:54 Morphine Sulfate (Morphine) 2 mg IVP Q4HR PRN PRN Reason: Pain (Severe) Stop: 08/30/16 06:06 Last Admin: 07/04/16 09:31 Dose: 2 mg Nifedipine (Procardia Xl) 60 mg PO DAILY [facility] Stop: 08/31/16 08:59 Last Admin: 07/04/16 09:25 Dose: 60 mg Ondansetron HCl (Zofran) 4 mg IV Q8H PRN PRN Reason: Nausea / Vomiting Stop: 08/30/16 06:10 Last Admin: 07/01/16 11:31 Dose: 4 mg Pantoprazole Sodium (Protonix) 40 mg IVP DAILY [facility] Stop: 08/31/16 08:59 Last Admin: 07/04/16 09:30 Dose: 40 mg Promethazine HCl/Dextromethorphan (Phenergan Dm 6.25/15mg-5 Ml) 5 ml PO Q6HR PRN PRN Reason: Cough Stop: 08/30/16 06:02 Sennosides (Senna Plus 50 Mg-8.6 Mg) 8.6 tab PO HS [facility] Stop: 08/30/16 20:59 Last Admin: 07/03/16 23:53 Dose: Not Given Valsartan (Diovan) 160 mg PO BID [facility] Stop: 08/30/16 08:59 Last Admin: 07/04/16 09:28 Dose: 160 mg Vitamin B Complex/Vit C/Folic Acid (Vitamin B Complex W/Vitamin C) 1 tab PO DAILY [facility] Stop: 08/30/16 08:59 Last Admin: 07/04/16 09:30 Dose: 1 tab General: weak, alert HEENT: NC/AT, PERRLA Neck: Supple Lungs: CTAB Cardiovascular: RRR, Normal S1, Normal S2, without murmur Abdomen: soft non-tender, non-distended - Procedures Procedures: Procedures Procedure Code Date BLOOD TRANSFUSION SERVICE 58361 03/25/15 ESRD HOME PT SERV P DAY 20+ 99190 07/19/15 HEMODIALYSIS 39.95 12/07/14 HEMODIALYSIS REPEATED EVAL 64675 03/25/15 INJECT/INFUSE NEC 99.29 10/13/14 INSERT EMERGENCY AIRWAY 72527 07/01/16 INSERTION OF ENDOTRACHEAL AIRWAY INTO TRACHEA, VIA OPENING [id number] 07/01/16 PERFORMANCE OF URINARY FILTRATION, MULTIPLE [id number] 05/13/16 PERFORMANCE OF URINARY FILTRATION, SINGLE [id number] 05/23/16 RESPIRATORY VENTILATION, 24-96 CONSECUTIVE HOURS [id number] 07/01/16 TRANSFUSE NONAUT RED BLOOD CELLS IN PERIPH VEIN, PERC [id number] 03/25/15 VENT MGMT INPAT INIT DAY 82500 07/01/16 VENT MGMT INPAT SUBQ DAY 53498 07/01/16 Internal Medicine Assmt/Plan - Assessment Assessment: RESPIRATORY FAILURE UNCONTROLLED DIABETES UNCONTROLLED HYPERTENSION ESRD ON HD CHF DM-2 NONCOMPLIANCE HYPERKALEMIA HYPONATREMIA - Plan Plan: dietary consult physical therapy [place] [facility] with HD IVABX monitor i+o monitor lytes
[2016-07-04] MEDS: Ferrous Sulfate 325 MG TAB PO SCH (17:16)
[2016-07-04] MEDS: Atorvastatin Calcium 10 MG TAB PO SCH (21:33)
[2016-07-04] MEDS: Fenofibrate, Micronized 134 mg Cap PO SCH (21:34)
[2016-07-04] MEDS: Docusate Sodium/Senna Tab PO SCH (21:35)
[2016-07-05] MEDS ORDERED: Heparin Sod 1,000 Units/mL 10ml HD SCH
[2016-07-05 05:00] LABS: % BASOPHILS 0.2 % (0.0-2.0); % LYMPHOCYTES 9.6 % (20.0-50.0); % MONOCYTES 10.5 % (2.0-10.0); % NEUTROPHILS 75.7 % (40.0-80.0); HEMOGLOBIN 8.1 gm/dL (13.2-17.3); MEAN CELL VOLUME 88.5 fl (80-99); MEAN CORPUSCULAR HGB CONC 33.8 pg (28.0-36.0); MEAN PLATELET VOLUME 9.5 fl; PLATELET COUNT 104 Th/cmm (150-400); RED BLOOD COUNT 2.72 Mil/cmm (4.30-5.70); RED CELL DISTRIBUTION WIDTH 12.7 % (11.5-20.0); WHITE BLOOD COUNT 6.6 Th/cmm (4.8-10.8)
[2016-07-05 05:14] LABS: ANION GAP 10.8 (7.0-16.0); BUN/CREATININE RATIO 4.4; CALCIUM SERUM 9.2 mg/dL (8.6-10.3); CARBON DIOXIDE 27.8 mEq/L (21.0-31.0); POTASSIUM SERUM 3.6 mEq/L (3.5-5.1)
[2016-07-05 05:22] LABS: CREATININE - SERUM 7.9 mg/dL (0.7-1.3)
[2016-07-05 05:23] LABS: VANCOMYCIN RANDOM 30.6 ug/mL (5.0-40.0)
[2016-07-05] MEDS: Levothyroxine 0.1 Mg Tab PO SCH (06:40)
[2016-07-05] MEDS: INSULIN ASPART, RECOMBINANT 100 UNITS/ML SUBQ SCH ×3 (06:41→16:43)
[2016-07-05] MEDS: Ipratropium Neb 0.5 mg/2.5 mL UD HHN SCH ×3 (07:22→15:24)
[2016-07-05] MEDS: Albuterol Nebulizer 2.5mg/3mL HHN SCH ×3 (07:22→15:24)
[2016-07-05] MEDS: NIFEdipine 30 mg ER Tab PO SCH (08:39)
[2016-07-05] MEDS: Vitamin B Complex w/Vitamin C Tab PO SCH (08:41)
[2016-07-05] MEDS: Aspirin 81mg Chewable Tab PO SCH (08:41)
[2016-07-05] MEDS: Lactobacillus Rhamnosus 10 Billion CFU Capsule PO SCH (08:42)
--- NOTE | 2016-07-05 10:50 | Diagnostic Imaging Report ---
Portable chest x-ray HISTORY: Shortness of breath Compared with prior exam of July 03, 2016, there remains density in the left lower lobe with partial obscuration the left hemidiaphragm. Pneumonia cannot be excluded. The heart size remains enlarged. The endotracheal tube has been removed. IMPRESSION: 1. Status post removal endotracheal tube 2. Suggestion of density unchanged within the left lower lobe. Pneumonia cannot be excluded. Clinical correlation is needed.
--- NOTE | 2016-07-05 13:03 | Internal Medicine Prog Note ---
Internal Medicine Subjective - Subjective Service Date: 07/05/16 (awake, alert, undergoing dialysis at this time, patient states he feels a bit weak, denies any sob ) Patient seen and examined:: with staff Internal Medicine Objective - Results Result Diagrams: 07/05/16 04:38 07/05/16 04:38 Recent Labs: Laboratory Last Values WBC 6.6 Th/cmm (4.8-10.8) 07/05/16 04:38 RBC 2.72 Mil/cmm (4.30-5.70) L 07/05/16 04:38 Hgb 8.1 gm/dL (13.2-17.3) L 07/05/16 04:38 Hct 24.0 % (39.0-49.0) L 07/05/16 04:38 MCV 88.5 fl (80-99) 07/05/16 04:38 MCH 30.0 pg (26.0-30.0) 07/05/16 04:38 MCHC Differential 33.8 pg (28.0-36.0) 07/05/16 04:38 RDW 12.7 % (11.5-20.0) 07/05/16 04:38 Plt Count 104 Th/cmm (150-400) L 07/05/16 04:38 MPV 9.5 fl 07/05/16 04:38 Neutrophils % 75.7 % (40.0-80.0) 07/05/16 04:38 Lymphocytes % 9.6 % (20.0-50.0) L 07/05/16 04:38 Monocytes % 10.5 % (2.0-10.0) H 07/05/16 04:38 Eosinophils % 4.0 % (0.0-5.0) 07/05/16 04:38 Basophils % 0.2 % (0.0-2.0) 07/05/16 04:38 PT 10.3 SECONDS (9.5-11.5) 07/01/16 03:12 INR 1.04 (0.5-1.4) 07/01/16 03:12 PTT (Actin FS) 28.1 SECONDS (26.0-38.0) 07/01/16 03:12 Specimen Source Arterial 07/03/16 10:10 Sample Site RB 07/03/16 10:10 pH 7.41 (7.35-7.45) 07/03/16 10:10 pCO2 43.0 mmHg (35.0-45.0) 07/03/16 10:10 pO2 90.0 mmHg (80.0-100.0) 07/03/16 10:10 HCO3 27.3 mmol/L (20.0-26.0) H 07/03/16 10:10 Base Excess 2.3 mmol/L (-3.0-3.0) 07/03/16 10:10 O2 Saturation 97.0 % (92.0-100.0) 07/03/16 10:10 Gerry Test NA 07/01/16 12:40 Vent Rate 16 07/03/16 10:10 Inspired O2 35 07/03/16 10:10 Tidal Volume 500 07/03/16 10:10 PEEP 5 07/03/16 10:10 Pressure (ins/psv/peep) 10 07/03/16 10:10 Critical Value PW 07/03/16 10:10 Sodium 132 mEq/L (136-145) L 07/05/16 04:38 Potassium 3.6 mEq/L (3.5-5.1) 07/05/16 04:38 Chloride 97 mEq/L (98-107) L 07/05/16 04:38 Carbon Dioxide 27.8 mEq/L (21.0-31.0) 07/05/16 04:38 Anion Gap 10.8 (7.0-16.0) 07/05/16 04:38 BUN 35 mg/dL (7-25) H 07/05/16 04:38 Creatinine 7.9 mg/dL (0.7-1.3) H* 07/05/16 04:38 Est GFR ( Amer) 9.2 ml/min (>90) 07/05/16 04:38 Est GFR (Non-Af Amer) 7.6 ml/min 07/05/16 04:38 BUN/Creatinine Ratio 4.4 07/05/16 04:38 Glucose 247 mg/dL (70-105) H 07/05/16 04:38 POC Glucose 338 MG/DL (70 - 105) H 07/05/16 12:02 Hemoglobin A1c % 10.1 % (4.0-6.0) H 07/01/16 03:12 Plasma/Ser Osmolality 332 mOsmol/kg (275-295) H 07/01/16 03:12 Whole Bld Lactic Acid 0.77 mmol/L (0.60-2.00) 07/01/16 03:12 Calcium 9.2 mg/dL (8.6-10.3) 07/05/16 04:38 Phosphorus 6.1 mg/dL (2.5-5.0) H 07/01/16 03:12 Magnesium 2.0 mg/dL (1.9-2.7) 07/02/16 07:50 Total Bilirubin 0.4 mg/dL (0.3-1.0) 07/03/16 04:39 AST 55 U/L (13-39) H 07/03/16 04:39 ALT 48 U/L (7-52) 07/03/16 04:39 Alkaline Phosphatase 67 U/L (34-104) 07/03/16 04:39 Ammonia 37 umol/L (16-53) 07/02/16 07:50 Troponin I 0.09 ng/mL (0.01-0.05) H* 07/02/16 16:00 B-Natriuretic Peptide 1480.0 pg/mL (5.0-100.0) H 07/03/16 04:39 Total Protein 6.1 gm/dL (6.0-8.3) 07/03/16 04:39 Albumin 3.4 gm/dL (4.2-5.5) L 07/03/16 04:39 Globulin 2.7 gm/dL 07/03/16 04:39 Albumin/Globulin Ratio 1.3 (1.0-1.8) 07/03/16 04:39 Lipase 20 U/L (11-82) 07/01/16 03:12 Random Vancomycin 30.6 ug/mL (5.0-40.0) 07/05/16 04:38 Serum Ketones MODERATE (NEGATIVE) H 07/01/16 03:12 - Physical Exam Vitals and I&O: Vital Signs Temp 98.6 F 07/05/16 12:00 Pulse 72 07/05/16 12:00 Resp 15 07/05/16 12:00 BP 114/54 07/05/16 12:00 Pulse Ox 97 07/05/16 12:00 Intake & Output 07/04/16 07/05/16 07/05/16 18:59 06:59 18:59 Intake Total 830 100 280 Output Total 0 Balance 830 100 280 Intake: Intake, IV Amount 100 Cefepime 0.5 gm In 100 Dextrose 5% 50 ml @ 100 mls/hr IV Q12HR@0000,1200 [facility] Rx#:[id number] Oral 830 280 Output: Urine 0 Other: # Voids 0 # Bowel Movements 0 Active Medications: Current Medications Acetaminophen (Tylenol) 650 mg PO Q4HR PRN PRN Reason: Pain (Mild) Stop: 08/30/16 06:02 Last Admin: 07/04/16 23:52 Dose: 650 mg Albuterol Sulfate (Albuterol 2.5mg/3ml Neb Ud) 2.5 mg HHN QIDRT [facility] Stop: 08/30/16 08:59 Last Admin: 07/05/16 11:04 Dose: 2.5 mg Aspirin (Aspirin Chewable) 81 mg PO DAILY [facility] Stop: 08/30/16 08:59 Last Admin: 07/05/16 08:41 Dose: 81 mg Atorvastatin Calcium (Lipitor) 20 mg PO HS [facility] PRN Reason: Protocol Stop: 08/30/16 20:59 Last Admin: 07/04/16 21:33 Dose: 20 mg Calcium Acetate (Phoslo) 667 mg PO TID [facility] Stop: 08/30/16 08:59 Last Admin: 07/05/16 08:42 Dose: 667 mg Carvedilol (Coreg) 12.5 mg PO BID [facility] Stop: 08/30/16 23:30 Last Admin: 07/05/16 08:40 Dose: Not Given Cholecalciferol (Vitamin D3) 5,000 iu PO DAILY [facility] Stop: 08/30/16 08:59 Last Admin: 07/05/16 08:43 Dose: 5,000 iu Clonidine HCl (Catapres) 0.2 mg PO TID [facility] Stop: 08/30/16 08:59 Last Admin: 07/05/16 08:41 Dose: Not Given Clonidine HCl (Catapres) 0.1 mg PO Q6HR PRN PRN Reason: sbp 170 mmhg and up Stop: 08/31/16 01:25 Last Admin: 07/04/16 11:58 Dose: 0.1 mg Diltiazem HCl (Cardizem) 20 mg IVP Q4H PRN PRN Reason: HR Greater than 130 per min Stop: 08/30/16 06:06 Docusate Sodium (Colace) 100 mg PO BID [facility] Stop: 08/30/16 08:59 Last Admin: 07/05/16 08:44 Dose: Not Given Enalaprilat (Vasotec) 1.25 mg IVP Q6HR PRN PRN Reason: SBP 170 mmhg and above Stop: 08/31/16 05:59 Last Admin: 07/02/16 06:06 Dose: 1.25 mg Epoetin Nate (Epogen) 5,000 units SUBQ TuThSa [facility] Stop: 09/03/16 14:59 Fenofibrate (Tricor) 134 mg PO HS [facility] Stop: 08/30/16 20:59 Last Admin: 07/04/16 21:34 Dose: 134 mg Ferrous Sulfate (Iron) 325 mg PO QPM 1700 [facility] Stop: 08/30/16 16:59 Last Admin: 07/04/16 17:16 Dose: 325 mg Folic Acid (Folate) 1 mg PO DAILY [facility] Stop: 08/30/16 08:59 Last Admin: 07/05/16 08:44 Dose: 1 mg Heparin Sodium (Porcine) (Heparin) 5,000 units SUBQ Q8H [facility] Stop: 08/31/16 08:59 Last Admin: 07/05/16 08:45 Dose: 5,000 units Heparin Sodium (Porcine) (Heparin Sodium) 2,000 units HD UD [facility] Stop: 07/06/16 00:00 Last Admin: 07/05/16 06:08 Dose: Not Given Hydralazine HCl (Apresoline) 100 mg PO Q8HR [facility] Stop: 08/30/16 12:59 Last Admin: 07/05/16 06:40 Dose: 100 mg Cefepime HCl 0.5 gm/ Dextrose 50 mls @ 100 mls/hr IV Q12HR@0000,1200 [facility] Stop: 08/30/16 11:59 Last Admin: 07/05/16 12:00 Dose: 100 mls/hr Insulin Aspart (Novolog) 0 units SUBQ ACHS [facility] PRN Reason: Protocol Stop: 08/30/16 07:29 Last Admin: 07/05/16 12:04 Dose: 6 units Ipratropium [place] (Atrovent Neb 0.5mg/2.5ml) 0.5 mg HHN QIDRT [facility] Stop: 08/30/16 11:01 Last Admin: 07/05/16 11:04 Dose: 0.5 mg Lactobacillus Rhamnosus (Culturelle) 1 each PO DAILY [facility] Stop: 08/31/16 08:59 Last Admin: 07/05/16 08:42 Dose: 1 each Levothyroxine Sodium (Synthroid) 0.1 mg PO QDAC [facility] Stop: 08/30/16 07:29 Last Admin: 07/05/16 06:40 Dose: 0.1 mg Lorazepam (Ativan) 1 mg IV Q4HR PRN; Protocol PRN Reason: Seizure Stop: 08/30/16 06:06 Last Admin: 07/02/16 15:30 Dose: 1 mg Minoxidil (Loniten) 2.5 mg PO BID [facility] Stop: 08/30/16 08:59 Last Admin: 07/05/16 08:41 Dose: 2.5 mg Miscellaneous (Vancomycin Iv Per Pharmacy) 1 ea PRN PRN PRN Reason: PROTOCOL Stop: 08/30/16 12:44 Miscellaneous (Probiotic Screen) 1 ea PRN PRN PRN Reason: PROTOCOL Stop: 08/30/16 15:25 Miscellaneous (Clinical Monitoring) 1 ea PRN PRN PRN Reason: RENAL DOSING Stop: 09/02/16 07:54 Morphine Sulfate (Morphine) 2 mg IVP Q4HR PRN PRN Reason: Pain (Severe) Stop: 08/30/16 06:06 Last Admin: 07/04/16 18:50 Dose: 2 mg Nifedipine (Procardia Xl) 60 mg PO DAILY [facility] Stop: 08/31/16 08:59 Last Admin: 07/05/16 08:39 Dose: 60 mg Ondansetron HCl (Zofran) 4 mg IV Q8H PRN PRN Reason: Nausea / Vomiting Stop: 08/30/16 06:10 Last Admin: 07/01/16 11:31 Dose: 4 mg Pantoprazole Sodium (Protonix) 40 mg IVP DAILY [facility] Stop: 08/31/16 08:59 Last Admin: 07/05/16 08:41 Dose: 40 mg Promethazine HCl/Dextromethorphan (Phenergan Dm 6.25/15mg-5 Ml) 5 ml PO Q6HR PRN PRN Reason: Cough Stop: 08/30/16 06:02 Sennosides (Senna Plus 50 Mg-8.6 Mg) 8.6 tab PO HS [facility] Stop: 08/30/16 20:59 Last Admin: 07/04/16 21:35 Dose: Not Given Valsartan (Diovan) 160 mg PO BID [facility] Stop: 08/30/16 08:59 Last Admin: 07/05/16 08:39 Dose: 160 mg Vitamin B Complex/Vit C/Folic Acid (Vitamin B Complex W/Vitamin C) 1 tab PO DAILY [facility] Stop: 08/30/16 08:59 Last Admin: 07/05/16 08:41 Dose: 1 tab General: weak, alert HEENT: NC/AT Neck: Supple Lungs: CTAB Cardiovascular: RRR, Normal S1, Normal S2, without murmur Abdomen: soft non-tender, non-distended Extremities: clear - Procedures Procedures: Procedures Procedure Code Date BLOOD TRANSFUSION SERVICE 64488 03/25/15 ESRD HOME PT SERV P DAY 20+ 07026 07/19/15 HEMODIALYSIS 39.95 12/07/14 HEMODIALYSIS REPEATED EVAL 24969 03/25/15 INJECT/INFUSE NEC 99.29 10/13/14 INSERT EMERGENCY AIRWAY 10868 07/01/16 INSERTION OF ENDOTRACHEAL AIRWAY INTO [place]HE[place], VIA OPENING [id number] 07/01/16 PERFORMANCE OF URINARY FILTRATION, MULTIPLE [id number] 05/13/16 PERFORMANCE OF URINARY FILTRATION, SINGLE [id number] 05/23/16 RESPIRATORY VENTILATION, 24-96 CONSECUTIVE HOURS [id number] 07/01/16 TRANSFUSE NONAUT RED BLOOD CELLS IN PERIPH VEIN, PERC 81449I3 03/25/15 VENT MGMT INPAT INIT DAY 44886 07/01/16 VENT MGMT INPAT SUBQ DAY 02036 07/01/16 Internal Medicine Assmt/Plan - Assessment Assessment: RESPIRATORY FAILURE UNCONTROLLED DIABETES UNCONTROLLED HYPERTENSION ESRD ON HD CHF DM-2 NONCOMPLIANCE HYPERKALEMIA HYPONATREMIA - Plan Plan: dc to [facility] today once bed available IVABX monitor i+o monitor lytes
[2016-07-05] MEDS: Morphine Sulfate 2 mg/mL 1mL Syr IVP PRN (14:20)
[2016-07-05] MEDS ORDERED: Epoetin Alfa 20000 Units/mL Vial SUBQ SCH (15:00)
[2016-07-05] MEDS: Ferrous Sulfate 325 MG TAB PO SCH (16:42)
--- NOTE | 2016-07-07 17:43 | Cardiology ---
ECHOCARDIOGRAM The patient of Dr. Gregory. M-MODE ECHOCARDIOGRAM: Mitral valve, anterior leaflet of the mitral valve shows normal excursion, EF velocity. Posterior leaflet of the mitral valve shows normal excursion. Left ventricular posterior wall shows increased thickness, normal excursion. Interventricular septum shows increased thickness, normal excursion, hypertrophy of the left ventricle, ejection fraction 60%. Left atrium enlarged 4.2 cm. Aortic root shows normal dimension, normal excursion of aortic leaflets. CONCLUSION: Hypertrophy of the left ventricle, left atrial enlargement, ejection fraction 60%. 2D ECHO: Long-axis view showed normal-sized left ventricle with hypertrophy of the left ventricle. Left atrium enlarged. Aortic root shows normal dimension, normal excursion of aortic leaflets. Short-axis view of mitral valve normal, short-axis view of aortic valve normal. Apical four-chamber view showed normal-sized left ventricle with hypertrophy of the left ventricle, left atrial enlargement, right ventricular cavity, right atrium normal, and no pericardial effusion. CONCLUSION: Left atrial enlargement. Hypertrophy of the left ventricle, ejection fraction 60%. Doppler study shows prominent A wave consistent with poor compliance of left ventricle. Trace tricuspid regurgitation. JOB# [id number]
--- NOTE | 2016-08-26 06:56 | Discharge Summary ---
FINAL DIAGNOSES: Respiratory failure, status post extubation, uncontrolled diabetes, uncontrolled hypertension, hyponatremia, hypokalemia; ESRD on hemodialysis, noncompliant. HISTORY OF PRESENT ILLNESS: A 56-year-old male who was admitted to the ICU unit. The patient was brought in by lehr cutter from home with increasing shortness of breath for 2 hours. In the ER, the patient was orally intubated, placed on mechanical ventilator. PHYSICAL EXAMINATION: GENERAL: The patient is well developed, well nourished, in no acute distress. VITAL SIGNS: Stable. HEENT: Head, normocephalic, atraumatic. NECK: Supple. No mass. LUNGS: Clear bilaterally. HEART: Regular rate and rhythm. ABDOMEN: Soft, nontender, nondistended. HOSPITAL COURSE: During the hospital stay, the patient was admitted to the ICU unit. The patient had a chest x-ray done and the impression is clearing right lower lobe with no definite focal pulmonary processes. The patient had a consultation with Dr. Theodore. His plan of care for this patient was to continue ventilatory support and hemodialysis, and IV antibiotics as well and to do repeat chest x-ray. The patient also had a consultation with Dr. Martinez. His plan of care for this patient was to do an echocardiogram, do a EKG and troponin level as well. Dr. Haas was on the case for the patient's hemodialysis. The patient had an x-ray of his pelvis ____ and there is no fracture noted. On 07/03/2016 patient was extubated. The patient was on 2 liters via nasal cannula and tolerated well. Tolerated diet as well. The patient had a repeat chest x-ray done and the impression was pneumonia. The patient's echocardiogram also came in and the impression was ejection fraction of 60%. Due to the need of long-term IV antibiotics, the patient was discharged to [facility]. CONDITION UPON DISCHARGE: Fair. DISPOSITION: [facility]. JOB# [id number]
== END 2016-07-05 18:40 | DRG 208 ==
LOC: ER 02:00 → ERII 09:00 → ICU 10:35
PROVIDERS: ADMIT Internal Medicine; ATTEND Internal Medicine
PROC: 5A1945Z Respiratory Ventilation, 24-96 Consecutive Hours (ICD-10-PCS; principal; 2016-07-01)
PROC: 0BH17EZ Insertion of Endotracheal Airway into Trachea, Via Natural or Artificial Opening (ICD-10-PCS; 2016-07-01)
PROC: 5A1D60Z (ICD-10-PCS; 2016-07-01)
DX: J96.01 Acute respiratory failure with hypoxia (principal); E11.00 Type 2 diabetes mellitus with hyperosmolarity without nonketotic hyperglycemic-hyperosmolar coma (NKHHC); Z99.11 Dependence on respirator [ventilator] status; I13.2 Hypertensive heart and chronic kidney disease with heart failure and with stage 5 chronic kidney disease, or end stage renal disease; N18.6 End stage renal disease; E87.1 Hypo-osmolality and hyponatremia; I16.1 Hypertensive emergency; E11.65 Type 2 diabetes mellitus with hyperglycemia; I50.9 Heart failure, unspecified; J44.9 Chronic obstructive pulmonary disease, unspecified; F41.9 Anxiety disorder, unspecified; D63.8 Anemia in other chronic diseases classified elsewhere; E87.5 Hyperkalemia; E03.9 Hypothyroidism, unspecified; E11.21 Type 2 diabetes mellitus with diabetic nephropathy; I25.10 Atherosclerotic heart disease of native coronary artery without angina pectoris; Z99.2 Dependence on renal dialysis; Z91.15 Patient's noncompliance with renal dialysis; Z82.49 Family history of ischemic heart disease and other diseases of the circulatory system; Z79.4 Long term (current) use of insulin; Z90.49 Acquired absence of other specified parts of digestive tract
CPT/HCPCS: 36415-UA; 36600-90; 71010-TC; 72170-TC; 73560-TC-LT; 80048-TC; 80053-TC; 80202-TC; 82010-TC; 82140-TC; 82803-TC; 82948-90; 83036-90; 83605; 83690-TC; 83735-TC; 83880-TC; 83930-90; 84100-TC; 84484-TC; 85025-TC; 85610-TC; 85730-TC; 87070; 90779; 90937; 93005; 94002; 94003; 94640; 94760; 96375; 96376; C9113; J0360; J0692; J0696; J0885; J1644; J1815; J1940; J2060; J2270; J2405; J2704; J2930; J3370; J7030; J7040; J7042; J7613; X3904; Z7502; Z7610